=== PATIENT | male | born 1955 | race Caucasian/White ===

== ENCOUNTER → 2020-03-20 08:41 | Outpatient (CLI) | payer MEDICARE, BC, SELFPAY ==
[2016-01-12 10:55] VITALS: BMI 35.3
[2020-03-20 10:40] LABS: Microalbumin,Random Urine 9.9 mg/L (NO RANGE EST.); Microalbumin:Creatinine Ratio 5.7 mg/g CRE (<30 mg/g CRE)
[2020-03-20 10:48] LABS: AST(SGOT) 8 U/L (15-37); Alanine Aminotransfer ALT/SGPT 25 U/L (16-61); Albumin, Serum 3.4 g/dL (3.2-5.0); Alkaline Phosphatase 104 U/L (45-117); Anion Gap 7 (5-15); BUN 20 mg/dL (7-18); BUN/Creat Ratio 19.2 RATIO (10-20); Calcium,Total 8.6 mg/dL (8.5-10.1); Chloride 108 mmol/L (98-107); Cholesterol 219 mg/dL (200); Creatinine, Serum 1.04 mg/dL (0.70-1.30); EST Glomerular Filtration Rate 76 mL/min (>60); Est Glom Filt Rate - Afr Amer 92 mL/min (>60); Globulin 3.4 g/dL (2.2-4.2); Glucose 92 mg/dL (74-106); High Density Lipoprotein 53 mg/dL; PSA,Total - Annual Screen 2.75 ng/mL (0.00-4.00); Potassium 4.2 mmol/L (3.5-5.1); Protein, Total 6.8 g/dL (6.4-8.2); Sodium Level 139 mmol/L (136-145); Thyroid Stim Hormone (TSH) 1.98 uIU/mL (0.358-3.74); Triglycerides 107 mg/dL; Very Low Density Lipoprotein 21 mg/dL (5-40)
[2020-03-20 11:34] LABS: Vitamin D,25 Hydroxy 21.8 ng/mL
== END ==
PROVIDERS: PCP Family Medicine; Referring Provider Family Medicine; Visit Provider Family Medicine
DX: I10 Essential (primary) hypertension (principal); E55.9 Vitamin D deficiency, unspecified; Z12.5 Encounter for screening for malignant neoplasm of prostate
CPT/HCPCS: 36415; 80053; 80061; 82043; 82306; 82570; 84153; 84443; G0103

== ENCOUNTER → 2020-04-06 10:44 | Outpatient (CLI) | payer MEDICARE, BC, SELFPAY ==
[2020-03-28 13:31] VITALS: BMI 34.9
--- NOTE | 2020-04-06 10:46 | ECHOCS_ITS ---
Reason For Study: Abnormal EKG Procedure This was a 2D Doppler, Color Flow transthoracic echocardiogram. The study was technically difficult. Contrast injection was performed. Exam performed in department. Left Ventricle Normal LV size. Moderate concentric left ventricular hypertrophy. The estimated ejection fraction is 50 %. Stage 1 diastolic dysfunction. No regional wall motion abnormalities noted. Right Ventricle Normal RV size. Normal systolic function. Atria Normal left atrium. Normal right atrium. Patent foramen ovale. Mitral Valve Normal mitral valve. Tricuspid Valve Normal tricuspid valve. Aortic Valve The aortic valve is not well visualized. Trisinus/trileaflet aortic valve. Pulmonic Valve The pulmonic valve is not well visualized. Great Vessels Normal aortic root. The pulmonary artery is normal size. Normal inferior vena cava. Pericardium/Pleural No pericardial effusion. Medication 22 gauge I.V. with prn adaptor inserted into right arm. Diluted definity 5ml given slow IV push to enhance endocardial definition. Performed a rapid injection of agitated mix of 9 cc saline and 1cc air to assess for atrial septal defect. MMode/2D Measurements & Calculations LVIDd: 4.8 cm IVSd: 1.6 cm LA dimension: 3.5 cm LVIDs: 3.8 cm LVPWd: 1.9 cm RVDd: 4.1 cm FS: 19.2 % LAV(MOD-bp): 50.7 ml LVAd ap4: 43.4 cm2 SV(MOD-sp4): 93.7 ml LAV(MOD-bp) Indexed: 20.2 ml/m2 EDV(MOD-sp4): 176.6 ml LAV(MOD-sp2): 67.9 ml EDV(sp4-el): 185.6 ml LAV(MOD-sp4): 33.1 ml LVAs ap4: 27.9 cm2 ESV(MOD-sp4): 82.9 ml ESV(sp4-el): 86.5 ml EF(MOD-sp4): 53.0 % EF(sp4-el): 53.4 % SV(sp4-el): 99.1 ml LA A4 area: 14.7 cm2 RA A4 area: 15.0 cm2 Time Measurements MV dec time: 0.26 sec Doppler Measurements & Calculations MV E max roscoe: 46.8 cm/sec Lat Peak E' Roscoe: 7.0 cm/sec Med Peak E' Roscoe: 4.1 cm/sec MV A max roscoe: 82.1 cm/sec E/E' lat: 6.7 E/E' med: 11.3 MV E/A: 0.57 MV V2 max: 82.2 cm/sec MV P1/2t max roscoe: 49.2 cm/sec Ao V2 max: 95.9 cm/sec MV max P.7 mmHg MV P1/2t: 85.5 msec Ao max P.7 mmHg MV V2 mean: 42.3 cm/sec MV mean P.87 mmHg MV dec slope: 168.4 cm/sec2 MV V2 VTI: 19.5 cm MVA(P1/2t): 2.6 cm2 LV V1 max: 77.4 cm/sec PA V2 max: 65.5 cm/sec LV V1 max P.4 mmHg Interpretation Summary Normal LV size. The estimated ejection fraction is 50 %. Moderate concentric left ventricular hypertrophy. Stage 1 diastolic dysfunction. Patent foramen ovale. Contrast injection was performed. Ordering Physician: Dru Minor Referring Physician: Scotty Hendrix Performed By: Gnearo Kidd RCS
== END ==
PROVIDERS: PCP Family Medicine; Referring Provider Internal Medicine Cardiovascular Disease; Visit Provider Internal Medicine Cardiovascular Disease
DX: R94.31 Abnormal electrocardiogram [ECG] [EKG] (principal)
CPT/HCPCS: 93306; Q9957; A4216; C8929

== ENCOUNTER 2020-05-10 10:30 | Outpatient (RCR) | payer MEDICARE, BC, SELFPAY ==
--- NOTE | 2020-03-19 08:50 | HP.PTEVAL_ITS ---
Patient's Visit Information ARIAS CHOE is a 65 year old M referred to Physical Therapy by Dr. Scotty Hendrix MD with a diagnosis of R hip stiffness. Date of Evaluation: 03/19/20 Physical Therapist: Scotty Tyson, DPT, OCS, CSCS - Visit Plan Frequency: 2x /Week Duration: 2 Months Plan: 2x/week for up to 6-8 weeks. Start Aquatic therapy for. 1. HS , qud and hip flexor stretches(h/o R MARISELA yrs ago posterior approach that needs stretched out.). 2. LB flexion ROM. 3. Strength in end ranges (deeper squats and lift positions) , core strength). Progress HEP and [facility] so can progress exercises there. - Subjective Dr. Hendrix sent as mobility is not as good as it used to be. Getting out of chair require arms and doctor does not like that. Hard to bend over and reach floor(plays golf and hard to mckenna up ball.). Has h/o some back issues and has had therapy for that which helped. Back is very stiff. R MARISELA 4 years ago. No real pain. Sleep is not great but not due to hip. Everything feels stiff. Retired one year ago. Rides bike daily stationary or road daily. Feels good afterwards. Basic ADLs are done just slow. Golf throughout winter as able. Has not teed own ball in 5 years or so. No falls. - Objective Walks with mild B foot slap appearing to be more stiffness then strength related. I gait. Needs UE to exit chair(tightness and weakness at extreme ranges). Steps reciprocal with one rail easily. I with bad transfers but core looks weak and labored trying to roll. HS and quads max tight at 50 90/90 test adn heel 6 inches from buttock B in prone. Hip flexor mild tight B. Strength Hips 3 abd and ext R and 3+ L. flexion 4- B, knee flexion and extension 4+ B, ankles 4 B with some inv/ev motor control deficits. Good coordination to reciprocal toe tapping. Sensation WNL to gross light touch in LE. reflexes 1/3 patella and achilles. L/S AROM ext mod limited, SB min limited, flexion max limited adn slow, no pain but very stiff and careful. Unable to put finger on ground in standing or sitting. - Balance Scores Functional Gait Assessment Score: 28 % Disability: 6.6700 - Goals Goal 1:: Bend to put mckenna in ground I Goal Time Frame: 6-8 Weeks Goal 2:: Exit chair without UE I Goal Time Frame: 6-8 Weeks Goal 3:: I appropriate HEP to help with strength and limit stiffness Goal Time Frame: 4-6 Weeks Goal 4:: Pt feel 50% looser and more mobile Goal Time Frame: 4-6 Weeks - Rehabilitation Potential Physical Therapy Diagnosis: stiffness and weakness causing mobility deficits. Rehabilitation Potential: Good - Anticipated Interventions Patient/Client Instruction: Educate patient on: Condition For the Purpose of:: To increase ROM, To improve muscle performance and motor function Therapeutic Exercise to Include: Strength training, Flexibilty training, In an aquatic setting, Passive ROM, Active ROM For the Purpose of:: To increase ROM, To improve muscle performance and motor function, To increase tolerance to activity/condition/position Manual Therapy Techniques to Include: Mobilization For the Purpose of:: To increase ROM Thank you for the opportunity to evaluate your patient. For Medicare and Medicare HMO plans, please review the plan of care and approve it. It will need to be FAXED BACK to us at [phone] for Medicare purposes. For Medicare only, by signing this I certify the plan of care. Please let me know if there are questions or concerns regarding this plan of care. Physician Sig nature: Date:
--- NOTE | 2020-04-12 16:18 | HP.PTREVAL ---
Dr. Scotty Hendrix MD, It has been my pleasure to treat ARIAS CHOE over the last 9 visits for R hip stiffness. Please see the progress note below for an update on the physical therapy plan of care! Subjective: Pretty good. Going the right way. Can bend over better adn touch ground. Can get out of some chairs without using UE. Feels looser adn stronger in core. No pain. No f/u with doctor Objective/Function: Steps reciprocally with one rail, some weakness in LE noted. recovering from bending or extreme knee flexion past 70 or lifting legs into knee flexion higher than 30 degrees is tough for patient. Walks with slightly neuropathic gait pattern but safe on firm flat surface. Out of chair without UE , two attempts needed. Lower chair would have been tough. Unable to bend and touch ground safely as he neded steadied, did touch floor however, needs more ROM in HS and gasroc and back muscles to be safe. Overall improving and yara lbe a usp project for patient. He is willing to joint a community pool and learn more aggressive exercises is appropriate. Fair prognosis over next 4 weeks to meet goals. Plan Plan: 2x/week for two weeks in pool to teach more aggressive HS, gastroc and LB flexion , rotation ROM for golf. Then patient to joint community pool to continue and progress to 2x/week for 2 weeks for land therapy to learn land exercises for functional strength adn ROM LB and legs to eventually done I at community [facility] just reopened. Goals Goal 1:: Bend to put mckenna in ground I Goal Time Frame: 6-8 Weeks Goal Progress: not yet. Goal 2:: Exit chair without UE I Goal Time Frame: 6-8 Weeks Goal Progress: Goal Met Goal 3:: I appropriate HEP to help with strength and limit stiffness Goal Time Frame: 4-6 Weeks Goal Progress: mat and chair., step up Goal 4:: Pt feel 50% looser and more mobile Goal Time Frame: 4-6 Weeks Goal Progress: Progressing Goal 5:: I pool adn gym ex to improve mobility adn strength. Goal Time Frame: 2-4 Weeks Goal Progress: NEW GOAL Anticipated Interventions Patient/Client Instruction: Educate patient on: Condition For the Purpose of:: To increase ROM, To improve muscle performance and motor function Therapeutic Exercise to Include: Strength training, Flexibilty training, In an aquatic setting, Passive ROM, Active ROM For the Purpose of:: To increase ROM, To improve muscle performance and motor function, To increase tolerance to activity/condition/position Manual Therapy Techniques to Include: Mobilization For the Purpose of:: To increase ROM Please do not hesitate to contact me at [phone] by phone or if you have questions or concerns regarding this new plan of care! Sincerely, Scotty Tyson, DPT, OCS, CSCS
--- NOTE | 2020-05-10 11:16 | HP.PTDCSUM ---
It has been my pleasure to treat ARIAS CHOE referred by Dr. Scotty Hendrix MD, with the diagnosis of R hip stiffness for a total of 17 visit(s). Discharge Date: 05/10/20 Please see the following information for a summary of their discharge status. Subjective: Still going the right way. Mades ome progress. Can get the floor now and pick things up. Has been golfing but someone still tees him up, he feels like he can try to mckenna up himself next week. To doctor in August. Is a member at the [facility] and does go there everyday. Riding bike at home and stretching at [facility] and lifting some weights % Improvement: 35 Objective/Function: ROM WFL in back and weight shift forward is limiting factor in sit to stand, back stiffness into flexion does not help this. Steps are reciprocal with just slight rail for safety. walks well. Pt feels comfortable cotninuing via his HEP with stretches, strengthening and bike at [facility] vs continue therapy. Goal 1:: Bend to put mckenna in ground I Goal Progress: with support only! Goal 2:: Exit chair without UE I Goal Progress: Goal Met, inconsistent. Goal 3:: I appropriate HEP to help with strength and limit stiffness Goal Progress: Goal Met Goal 4:: Pt feel 50% looser and more mobile Goal Progress: 35% Goal 5:: I pool adn gym ex to improve mobility adn strength. Goal Progress: Goal Met Plan: d/c to P Discharge Comments: Pt planning on continuing at [facility] but not in pool anymore. Will focus on stretching at home especially functional and contact doctor if progress stagnates. Will f/u with doctor in August. If there are questions or concerns regarding this patient's physical therapy, please feel free to call me at [phone]. Thank you for the referral of this patient. Sincerely, Scotty Tyson, DPT, OCS, CSCS
== END 2020-05-10 19:00 | disposition home or self-care (01) ==
LOC: PT 10:30
PROVIDERS: PCP Family Medicine; Referring Provider Family Medicine; Visit Provider Family Medicine
DX: M25.651 Stiffness of right hip, not elsewhere classified (principal); R26.89 Other abnormalities of gait and mobility
CPT/HCPCS: 97110; 97113; 97162; 97164

== ENCOUNTER 2021-03-19 08:08 | Outpatient (CLI) | payer MEDICARE, BC, SELFPAY | END 2021-03-19 23:59 | disposition short-term general hospital (02) | LOC: MFPLAB 08:09 | PROVIDERS: PCP Family Medicine; Referring Provider Family Medicine; Visit Provider Nurse Practitioner Family | DX: R69 Illness, unspecified (principal) ==

== ENCOUNTER → 2021-08-16 | Outpatient (CLI) | payer MEDICARE, BC, SELFPAY ==
[2021-08-16 10:27] LABS: Anion Gap 6 (5-15); BUN 18 mg/dL (7-18); BUN/Creat Ratio 18.9 RATIO (10-20); Calcium,Total 8.9 mg/dL (8.5-10.1); Chloride 108 mmol/L (98-107); Cholesterol 212 mg/dL (200); Creatinine, Serum 0.95 mg/dL (0.70-1.30); EST Glomerular Filtration Rate 84 mL/min (>60); Est Glom Filt Rate - Afr Amer 102 mL/min (>60); Glucose 97 mg/dL (74-106); High Density Lipoprotein 59 mg/dL; PSA,Total - Annual Screen 3.72 ng/mL (0.00-4.00); Potassium 4.1 mmol/L (3.5-5.1); Sodium Level 138 mmol/L (136-145); Triglycerides 109 mg/dL; Very Low Density Lipoprotein 22 mg/dL (5-40)
== END | disposition home or self-care (01) ==
PROVIDERS: PCP Family Medicine; Referring Provider Family Medicine; Visit Provider Nurse Practitioner Family
DX: Z12.5 Encounter for screening for malignant neoplasm of prostate (principal); I10 Essential (primary) hypertension
CPT/HCPCS: 36415; 80048; 80061; 84153; G0103

== ENCOUNTER → 2022-02-18 | Outpatient (CLI) | payer MEDICARE, BC, SELFPAY ==
--- NOTE | 2022-02-18 16:05 | EKG12_ITS ---
Test Reason : PREOP Blood Pressure : / mmHG Vent. Rate : 070 BPM Atrial Rate : 070 BPM P-R Int : 222 ms QRS Dur : 108 ms QT Int : 402 ms P-R-T Axes : 040 -64 034 degrees QTc Int : 434 ms Sinus rhythm with 1st degree A-V block Left anterior fascicular block Abnormal ECG Confirmed by DEVIN SCALES, JAMI ([id number]), deputy editor in chief NISREEN CORTES ([id number]) on 02/19/2022 8:59:12 AM Referred By: SHAHBAZ Confirmed By:JAMI BELTRAN MD
[2022-02-18 16:53] LABS: Hematocrit 49.6 % (40-54); Mean Corp Hgb Conc 32.3 g/dL (32-36); Mean Corpuscular Hgb 27.5 pg (27.0-32.0); Mean Corpuscular Volume 85.4 fL (80-94); Mean Platelet Vol. 10.2 fl (6.2-12.0); Platelet Count 253 K/mm3 (150-450); RBC Distribution Width CV 14.1 % (11.6-14.6); RBC Distribution Width SD 43.9 fl (35.1-43.9); Red Blood Count 5.81 M/mm3 (4.6-6.2); White Blood Count 8.5 K/mm3 (4.4-11.0)
[2022-02-18 17:08] LABS: Anion Gap 3 (5-15); BUN 22 mg/dL (7-18); BUN/Creat Ratio 24.4 RATIO (10-20); Calcium,Total 8.9 mg/dL (8.5-10.1); Chloride 106 mmol/L (98-107); EST Glomerular Filtration Rate 89 mL/min (>60); Est Glom Filt Rate - Afr Amer 108 mL/min (>60); Glucose 113 mg/dL (74-106); Potassium 4.3 mmol/L (3.5-5.1); Sodium Level 140 mmol/L (136-145)
== END | disposition home or self-care (01) ==
LOC: PSN 16:00
PROVIDERS: PCP Family Medicine; Visit Provider Physician Assistant
DX: Z01.818 Encounter for other preprocedural examination (principal); Z01.810 Encounter for preprocedural cardiovascular examination
CPT/HCPCS: 36415; 80048; 85027; 93005

== ENCOUNTER 2022-11-06 09:00 | Outpatient (RCR) | payer MEDICARE, BC, SELFPAY ==
--- NOTE | 2022-10-16 16:57 | HP.PTEVAL_ITS ---
Patient's Visit Information Visit Information Visit Information: ARIAS CHOE is a 67 year old M referred to Physical Therapy by Dr. Adam Hayden, DO with a diagnosis of SPINAL STENOSIS,LUMBAR W/O NEUROGENIC, SPONDYLOSIS WITH RADICULOPATHY,DDD. Date of Evaluation: 10/16/22 Physical Therapist: Greg Flores, PT, Cert MDT, OCS Visit Plan Frequency: 2x /Week Duration: 4 Weeks Plan: PT INTERVETIONS DLS ,POSTURAL EX'S ,LE FLEXABLITY ,AND BLE STRENGTHENING ESPECIALLY HIPS Subjective Subjective: This 67 y/o male presents to physical therapy with lumbar radiculopathy with spinal stenosis. Patient has had back symptoms along with sciatica issues many years . Patient has had PT in past which helped . Location of pain symmetrical lumbar and right leg > left .Most recently developed increase symptoms in legs. Seen DR Hayden and recommended PT. Prescribed prednisone which helped . Patient had MRI and x-rays showed spinal stenosis progressive DDD ~ 4weeks. Also plan to see DR Sampson for pain management. Aggravating walking , bending/lifting. Alleviating rest and sit along with medication. Coughing/sneezing-. Bowel/bladder -. Denies paresthesia/tingling-. Patient does c/o weakness in legs. Patient symptoms affects QOL and function. Patient goals to get stronger and less pain. PMH: right THR and arthroscopic left SOCIAL: HOBBIES: golfing VOCATION: retired Pain Bilateral Back: Pain Intensity (Out of 10): 1 Pain Intensity Range: 10 Bilateral Lower Extremity: Pain Intensity (Out of 10): 1 Pain Intensity Range: 10 Objective Objective: POSTURE: mild forward posture hip/knees flexed PALAPTION: unremarkable NEURO: denies paresthesia/tingling ,reflexes L3-4,L4-5 ,L4-5 1/3 SYMMTRIES: align GAIT: ambulates with shuffle gait with decrease hip flexion foot flat mild forward posture MMT: quads/hams 4-/5 ,( peak force ) hip flexion R 17,8 ,L 18,8 ,hip abd R 12.8 ,L 13.6 ,DF 4/5 LUMBAR ROM: flexion mod loss ,extension mod loss ,side glides mod loss , FLEXABILITY: hamstrings mod /severe loss ~ 45 degrees Special Tests L/S Slump test left side: Negative L/S Slump test right side: Negative L/S Left Straight Leg Raise: Negative L/S Right Straight Leg Raise: Negative Lumbar Standing: Flexion - Mechanical Response: No effect Lumbar Standing: Flexion - Symptoms During Testing: No effect Lumbar Standing: Flexion - Symptoms After Testing: No effect Lumbar Standing: Extension - Mechanical Response: No effect Lumbar Standing: Extension - Symptoms During Testing: No effect Lumbar Standing: Extension - Symptoms After Testing: No effect Lumbar Standing: Right Side Glides - Mechanical Response: No effect Lumbar Standing: Right Side [place] - Symptoms During Testing: No effect Lumbar Standing: Right Side [place] - Symptoms After Testing: No effect Lumbar Standing: Left Side [place] - Mechanical Response: No effect Lumbar Standing: Left Side [place] - Symptoms During Testing: No effect Lumbar Standing: Left Side [place] - Symptoms After Testing: No effect Balance/Special Test Scores Oswestry Low Back Score: 22 Goals Goal 1:: I with HEP for Lumbar Goal Time Frame: 4-6 Weeks Goal 2:: Patient improve lumbar ROM for function of recovery to put on shoes Goal Time Frame: 4-6 Weeks Goal 3:: Patient to demonstrate 50% improvement with decrease pain and improve function Goal Time Frame: 4-6 Weeks Goal 4:: Patient to improve back oswestry score by 5 points or > to improve QOL Goal Time Frame: 4-6 Weeks Goal 5:: Patient to improve peak force of hips by 5-10 # strength to improve gait Goal Time Frame: 4-6 Weeks Rehabilitation Potential Physical Therapy Diagnosis: This patient has lumbar stenosis with weakness in legs especially hip impair gait with pain increases with positioning and and lifting thus benefit from skilled PT Rehabilitation Potential: Good Anticipated Interventions Patient/Client Instruction: Educate patient on: Condition and Plan of Care For the Purpose of:: To decrease pain, To increase ROM, To improve muscle performance and motor function, To improve ability to perform ADL's, To increase tolerance to activity/condition/position, To improve ability of physical actions for home/community/work/leisure, To improve gait and locomotor functions, To improve health of tissue, To decrease soft tissue restriction, To increase flexibility/ROM and To improve endurance Therapeutic Exercise to Include: Strength training, Balance training, Body mechanics, Postural training, Flexibilty training and Dynamic Lumbar Stabilization For the Purpose of:: To decrease pain, To increase ROM, To improve muscle performance and motor function, To improve ability to perform ADL's, To increase tolerance to activity/condition/position, To improve ability of physical actions for home/community/work/leisure, To improve health of tissue, To decrease soft tissue restriction, To increase flexibility/ROM, To improve endurance and To improve tolerance to ADL's Text: Thank you for the opportunity to evaluate your patient. For Medicare and Medicare HMO plans, please review the plan of care and approve it. It will need to be FAXED BACK to us at [phone] for Medicare purposes. For Medicare only, by signing this I certify the plan of care. Please let me know if there are questions or concerns regarding this plan of care. Physician Signature: Date:
== END 2022-11-06 19:00 | disposition home or self-care (01) ==
LOC: PT 09:00
PROVIDERS: PCP Family Medicine; Referring Provider Orthopaedic Surgery; Visit Provider Orthopaedic Surgery
DX: M48.061 Spinal stenosis, lumbar region without neurogenic claudication (principal); M47.26 Other spondylosis with radiculopathy, lumbar region; M51.36 Other intervertebral disc degeneration, lumbar region
CPT/HCPCS: 97110; 97162

== ENCOUNTER 2022-12-25 10:50 | Outpatient (CLI) | payer MEDICARE, BC, SELFPAY ==
[2022-12-25 12:18] LABS: Absolute Lymphocyte Count 2.45 X10^3/uL (0.83-4.51); Absolute Neutrophil Count 4.2 X10^3/uL (2.0-7.7); Basophil# 0.08 X10^3/uL; Basophil% 1.1 % (0-1); Eosinophil# 0.22 X10^3/uL; Eosinophils% 2.9 % (0-5); Hematocrit 47.8 % (40-54); Lymphocyte # 2.45 X10^3/ul (0.83-4.51); Lymphocyte % 32.2 % (19-41); Mean Corp Hgb Conc 31.4 g/dL (32-36); Mean Corpuscular Hgb 26.9 pg (27.0-32.0); Mean Corpuscular Volume 85.8 fL (80-94); Mean Platelet Vol. 10.5 fl (6.2-12.0); Monocyte# 0.64 X10^3/uL; Monocyte% 8.4 % (0-10); NRBC Flagged by Analyzer 0 % (0-5); Neutrophil # 4.19 X10^3/uL (2.7-7.7); Platelet Count 227 K/mm3 (150-450); RBC Distribution Width SD 43.8 fl (35.1-43.9); Red Blood Count 5.57 M/mm3 (4.6-6.2); White Blood Count 7.6 K/mm3 (4.4-11.0)
[2022-12-25 13:11] LABS: ALB/GLOB Ratio 0.8 RATIO (0.9-2.4); AST(SGOT) 10 U/L (15-37); Alanine Aminotransfer ALT/SGPT 24 U/L (16-61); Albumin, Serum 3.1 g/dL (3.2-5.0); Alkaline Phosphatase 108 U/L (45-117); Anion Gap 7 (5-15); BUN 12 mg/dL (7-18); Calcium,Total 8.8 mg/dL (8.5-10.1); Chloride 109 mmol/L (98-107); Cholesterol 188 mg/dL (200); Creatinine, Serum 0.86 mg/dL (0.70-1.30); EST Glomerular Filtration Rate 94 mL/min (>60); Est Glom Filt Rate - Afr Amer 114 mL/min (>60); Globulin 3.8 g/dL (2.2-4.2); Glucose 101 mg/dL (74-106); High Density Lipoprotein 52 mg/dL; PSA,Total - Annual Screen 4.89 ng/mL (0.00-4.00); Potassium 4.7 mmol/L (3.5-5.1); Protein, Total 6.9 g/dL (6.4-8.2); Sodium Level 140 mmol/L (136-145); Thyroid Stim Hormone (TSH) 2.03 uIU/mL (0.358-3.74); Triglycerides 112 mg/dL; Very Low Density Lipoprotein 22 mg/dL (5-40)
[2022-12-25 16:35] LABS: Microalbumin,Random Urine < 5.0 mg/L (NO RANGE EST.)
[2022-12-25 19:04] LABS: Hemoglobin A1c 5.5 % (3.8-5.6)
== END 2022-12-25 23:59 | disposition home or self-care (01) ==
LOC: MFPLAB 10:50
PROVIDERS: PCP Family Medicine; Visit Provider Family Medicine
DX: Z00.00 Encounter for general adult medical examination without abnormal findings (principal); E66.01 Morbid (severe) obesity due to excess calories; Z12.5 Encounter for screening for malignant neoplasm of prostate; I10 Essential (primary) hypertension; M13.0 Polyarthritis, unspecified; G56.00 Carpal tunnel syndrome, unspecified upper limb
CPT/HCPCS: 36415; 80053; 80061; 82043; 82570; 83036; 84153; 84443; 85025; G0103

== ENCOUNTER → 2023-06-17 | Outpatient (CLI) | payer MEDICARE, BC, SELFPAY ==
[2023-06-17 10:28] LABS: ALB/GLOB Ratio 1.1 RATIO (0.9-2.4); AST(SGOT) 15 U/L (15-37); Alanine Aminotransfer ALT/SGPT 21 U/L (16-61); Albumin, Serum 3.4 g/dL (3.2-5.0); Alkaline Phosphatase 102 U/L (45-117); Anion Gap 4 (5-15); BUN 18 mg/dL (7-18); BUN/Creat Ratio 19.4 RATIO (10-20); Calcium,Total 8.8 mg/dL (8.5-10.1); Chloride 110 mmol/L (98-107); Creatinine, Serum 0.93 mg/dL (0.70-1.30); EST Glomerular Filtration Rate 86 mL/min (>60); Est Glom Filt Rate - Afr Amer 104 mL/min (>60); Globulin 3.2 g/dL (2.2-4.2); Glucose 92 mg/dL (74-106); PSA,Total - Annual Screen 4.64 ng/mL (0.00-4.00); Protein, Total 6.6 g/dL (6.4-8.2); Sodium Level 139 mmol/L (136-145)
== END | disposition home or self-care (01) ==
LOC: MFPLAB 08:34
PROVIDERS: PCP Family Medicine; Visit Provider Family Medicine
DX: Z12.5 Encounter for screening for malignant neoplasm of prostate (principal); R97.20 Elevated prostate specific antigen [PSA]
CPT/HCPCS: 36415; 80053; 84153; G0103

== ENCOUNTER 2023-12-11 12:06 | Day surgery (SDC) | payer MEDICARE, BC, SELFPAY ==
[2023-12-11 12:24] VITALS: BP 131/72; PULSE 76; RESP 16; TEMP 36.5; O2SAT 99; BMI 31.5
--- NOTE | 2023-12-11 13:00 | LES_PTH ---
PATIENT: ARIAS CHOE LOC: [facility] [place] U#:[id number] AGE/SX: 68/M ROOM: RE12/11/[address]: Dr. Kamilah Ortega MD : 1955 BED: DIS: 12/11/2023 SPEC #: [id number] RECD: 12/11/23 16:48 STATUS: LAURA LANCE #: [id number] DALE: 12/11/23 13:[address]: Kamilah Ortega DEPT: SURGICAL PATHOLOGY RECD BY: Carly Sawant ENTERED: 12/14/23 07:46 SP TYPE: Lesion OTHR DR: Dr. Scotty Hendrix MD Tissues: A - Skin of chest B - Skin of chest Procedures: Surgery Specimen Level IV HEADER OPERATION: Excision lesion chest x 2 (1.5, 1.5cm) with intermediate closure PRE-OP DIAGNOSIS: Neoplasm of uncertain behavior of skin of chest TISSUE SUBMITTED: A- Neoplasm of uncertain behavior of skin of chest #1 lateral, B- Neoplasm of uncertain behavior of skin of chest #2 medial MICROSCOPIC DIAGNOSIS A. Skin lesion of chest #1, lateral, excisional biopsy: Basal cell carcinoma, nodular type with focal ulceration and marked dermal inflammation, completely excised in the planes of sections examined. Actinic keratosis. B. 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 Actinic keratosis. 12/15/2023 COMMENT Case has been reviewed in consultation with Dr. Garcia who concurs with the above diagnosis. IDC:AM MICROSCOPIC DESCRIPTION Slides are reviewed. GROSS DESCRIPTION A. Received in fixative is one container labeled with the patient's name and designated Neoplasm of uncertain behavior of skin of chest #1 lateral. The specimen consists of a ambrocio-white skin piece measuring 1.1 x 0.9 x 0.3cm. The specimen is inked, serially sectioned and submitted entirely in one cassette. B. Received in fixative is one container labeled with the patient's name and designated Neoplasm of uncertain behavior of skin of chest #2 medial. The specimen consists of a piece of ambrocio-light brown skin measuring 1.0 x 0.6 x 0.3cm. The specimen is inked, serially sectioned and submitted entirely in one cassette. 12/14/2023 TC:0 CPT:40909s2
--- NOTE | 2023-12-11 13:05 | PCM.HP.BLA ---
History and Physical Date of Admission: 12/11/23 The patient is examined and there are no changes from the H&P dated 12/08/2023. He presents for excision of 2 lesions of his chest. These specimens will be sent to pathology for evaluation. Informed consent was obtained. Assessment & Plan Assessment/Plan (1) Neoplasm of uncertain behavior of skin of chest: PLAN: Plan For excision neoplasms chest for pathologic evaluation.
[2023-12-11] MEDS: Lidocaine 1% /Epi 1:100 9 ML, Sodium Bicarbonate 1 MEQ OPERA.SITE (13:54)
[2023-12-11 13:58] VITALS: BP 113/73; BP 118/69; O2SAT 100; O2SAT 97; O2SAT 98; O2SAT 99
--- NOTE | 2023-12-11 14:21 | DCINST_ITS ---
Discharge Instructions Dressing / Incision Additional Dressing/Incision Instructions:: May shower over the dressings on your chest. May leave the dressings on until seen in the office. If the dressings fall off, you can apply antibiotic ointment and Band-Aids. Take the oral antibiotic (Keflex) 2 times a day until finished. Follow Up Care Please Follow Up With: Kamilah Ortega MD When: In 1 to 2 weeks Test Results: Test results from this visit will be discussed in further detail at your follow- up appointment, if applicable. Discharge Plan Admission Attending Provider: Kamilah Ortega Primary Care Provider: Scotty Hendrix Instructions Print Language: Persian Discharge Orders/Prescriptions Prescriptions: New cephalexin 500 mg capsule 500 mg PO BID 5 Days Qty: 10 0RF No Action Garcinia Cambogia 200-500 mcg-mg tablet 3 tab PO BID Rx Instructions: administer with meals naproxen sodium [Aleve] 220 mg tablet 220 mg PO BID PRN (Reason: pain) Aleve PM 220-25 mg tablet 1 tab PO HS PRN multivitamin Tablet 1 tab PO DAILY diclofenac sodium [Voltaren] 1 % gel 2 g TOPICAL DAILY PRN Rx Instructions: apply to single elbow, wrist or hand; for hand includes palm/fingers/back of hand gabapentin 300 mg capsule 300 mg PO BID semaglutide 0.25 mg or 0.5 mg(2 mg/1.5 mL) pen injector 0.5 mg subcut QWEEK Referrals / Follow Up: Scotty Hendrix MD [Primary Care Provider] - Disposition Disposition (needs filled in before D/C Order can be placed): Home, Self Care
--- NOTE | 2023-12-11 14:26 | OP.PCM_ITS ---
Problems Associated Problem List Diagnoses (1) Neoplasm of uncertain behavior of skin of chest: Report of Operation Date of Procedure: 12/11/23 Pre-Operative Diagnosis: Neoplasm of chest skin x 2 Post-Operative Diagnosis: Same Surgery/Procedure Performed:: Excision neoplasms of anterior chest (1.5 cm, 1.5 cm) and intermediate closure both sites Surgeon: Kamilah Ortega Type of Anesthesia: Local Specimen's removed: Above Estimated Blood Loss (mL): Minimal Description of Procedure: The patient presents today with 2 new skin neoplasms of the anterior chest. He presents for excision of the lesions with submission for pathologic evaluation. He is aware of the potential need for further surgery depending on the resulting pathology. The patient is brought to the operating room and placed on the operating room table in the supine position. The chest is prepped and draped in the usual cristian rile fashion. 1% Xylocaine with epinephrine buffered with sodium bicarb is injected beneath both sites. Following this, there they are elliptically excised and passed off the operative field to be sent to pathology. Hemostasis is controlled with cautery. Following this, the sites are closed in layers using a Monocryl suture to approximate subcutaneous tissue and dermis with [id number] sutures. Following this, skin edges are approximated with a running subcuticular Monocryl suture. Dermabond Steri-Strips and a Tegaderm are applied to both sites. He tolerated the procedure well was taken to the recovery area in an awake and stable condition. Needle and sponge counts are correct. Complications None Admit VTE Documentation VTE Mechan Device Prophylaxis: None Reason prophylaxis not ordered:: Treatment Not Indicated
[2023-12-11 14:33] VITALS: BP 112/74; BP 131/72; PULSE 62; RESP 16; TEMP 36.7; O2SAT 99
[2023-12-11 14:37] VITALS: BP 131/72
== END 2023-12-11 14:46 | disposition home or self-care (01) ==
LOC: SDC 12:08 → AC 12:09
PROVIDERS: PCP Family Medicine; Referring Provider Plastic Surgery; Visit Provider Plastic Surgery
PROC: (CPT 11402; principal; 2023-12-11 12:50)
DX: D18.01 Hemangioma of skin and subcutaneous tissue (principal); L57.0 Actinic keratosis
CPT/HCPCS: 11402 ×2; 12032; 88305

== ENCOUNTER → 2023-12-31 | Outpatient (CLI) | payer MEDICARE, BC, SELFPAY ==
--- OUTSIDE RECORDS SUMMARY | 2023-12-31 11:56 | XMS RPT_ITS | CCD ---
Author Organization [facility] Results Test Name Value Interpretation Reference Range Facil ity PROGRESSon 03-13-2020 PROGRESS HNO ID: [id number] Author: Waleska Hurtado) SONAM Zarate Service: ? Author Type: Clinical Supervising Bailiff Type: Progress Notes Filed: 03/13/2020 9:04 AM Note Text: Radiology Service Progress Note PATIENT NAME: Austen Wagner DATE OF SERVICE: March 13, 2020 TIME: 9:04 AM PATIENT IDENTITY VERIFICATION COMPLETED USING TWO (2) IDENTIFIERS: Name and Date of confirmed by patient verbally. FALL SCREENING: Has the patient had 2 falls in the last year or 1 fall with injury or currently using an Ambulatory Assistive Device (Walker, Cane, Wheelchair, Crutches, etc.)? No PATIENT GENDER DATA: Male PATIENT RELEVANT IMPLANT DATA REVIEWED: Not Applicable RADIOLOGY DEPARTMENT: General X-ray: Exam(s) Completed: Pelvis X-Ray: Pelvis General AP PERIPHERAL IV DATA: Not applicable SIGNED BY: SONAM Mcbride March 13, 2020 9:04 AM [facility] XR PELVIS 1V APon 03-13-2020 XR PELVIS 1V AP * * *Final Report* * * DATE OF EXAM: Mar 13 2020 9:03AM [facility] [id number] - XR PELVIS 1V AP / PROCEDURE REASON: M25.551-Pain in right hip * * * * Physician Interpretation * * * * EXAMINATION: XR PELVIS 1V AP PATIENT/TECHNOLOGIST PROVIDED HISTORY: CHECK UP THR LOW PELVIS CLINICAL INFORMATION: 65 years old Male with Pain in right hip TECHNIQUE: XR PELVIS 1V AP Laterality: NOT APPLICABLE Number of different views (projections): 1 COMPARISON: Radiographs 03/19/2017, 03/18/2016, 01/24/2016, 12/24/2015 RESULT: Status post right total hip arthroplasty unchanged in alignment and position without evidence of loosening or periprosthetic fracture on this single frontal view. Similar amount of heterotopic ossification adjacent to the lesser trochanter. Slight interval increase in heterotopic ossification adjacent to the lateral acetabular rim and lateral femoral neck. Mild degenerative change left hip with inferomedial joint space narrowing and marginal osteophyte formation. IMPRESSION: Intact appearing right total hip arthroplasty. Block Chopper Hand: [place] Transcribe Date/Time: Mar 13 2020 9:06A Dictated by : MIKE RIOS DO This examination was interpreted and the report reviewed and electronically signed by: MIKE RIOS DO on Mar 13 2020 9:16AM EST [id number] N Normal [facility] Summary Purpose Family History No Family History Records Found Advance Directives No Advanced Directives Records Found Additional Source Comments (unrecognized sect ion and content) No Status Records Found INFORMATION SOURCE (unrecogn ized section and content) DATE CREATED AUTHOR 03/13/2020 [facility] FOR RECORDS PERTAINING TO PATIENTS WHO ARE OR HAVE BEEN ENROLLED IN A CHEMICAL DEPENDENCY/SUBSTANCEABUSE PROGRAM, SOME INFORMATION MAY BE OMITTED. This clinical summary was aggregated from multiple sources. Caution should be exercised in using it in the provision of clinical care. This summary normalizes information from multiple sources, and as a consequence, information in this document may materially change the coding, format and clinical context of patient data. In addition, data may be omitted in some cases. CLINICAL DECISIONS SHOULD BE BASED ON THE PRIMARY CLINICAL RECORDS. [facility] provides no warranty or guarantee of the accuracy or completeness of information in this document.
[2023-12-31 12:01] LABS: Absolute Lymphocyte Count 1.72 X10^3/uL (0.83-4.51); Absolute Neutrophil Count 3.8 X10^3/uL (2.0-7.7); Basophil# 0.07 X10^3/uL; Basophil% 1.1 % (0-1); Eosinophil# 0.18 X10^3/uL; Eosinophils% 2.8 % (0-5); Hematocrit 48.5 % (40-54); Lymphocyte # 1.72 X10^3/ul (0.83-4.51); Lymphocyte % 26.8 % (19-41); Mean Corpuscular Hgb 27.3 pg (27.0-32.0); Mean Corpuscular Volume 82.6 fL (80-94); Mean Platelet Vol. 10.6 fl (6.2-12.0); Monocyte% 9.4 % (0-10); NRBC Flagged by Analyzer 0 % (0-5); Neutrophil # 3.82 X10^3/uL (2.7-7.7); Neutrophil % 59.6 % (47-70); Platelet Count 222 K/mm3 (150-450); RBC Distribution Width CV 13.9 % (11.6-14.6); RBC Distribution Width SD 41.9 fl (35.1-43.9); Red Blood Count 5.87 M/mm3 (4.6-6.2); White Blood Count 6.4 K/mm3 (4.4-11.0)
[2023-12-31 12:34] LABS: AST(SGOT) 15 U/L (15-37); Alanine Aminotransfer ALT/SGPT 17 U/L (16-61); Albumin, Serum 3.4 g/dL (3.2-5.0); Alkaline Phosphatase 108 U/L (45-117); Anion Gap 7 (5-15); BUN 17 mg/dL (7-18); BUN/Creat Ratio 19.8 RATIO (10-20); Calcium,Total 8.7 mg/dL (8.5-10.1); Chloride 110 mmol/L (98-107); Cholesterol 208 mg/dL (200); Creatinine, Serum 0.86 mg/dL (0.70-1.30); EST Glomerular Filtration Rate 94 mL/min (>60); Est Glom Filt Rate - Afr Amer 114 mL/min (>60); Globulin 3.3 g/dL (2.2-4.2); Glucose 95 mg/dL (74-106); High Density Lipoprotein 59 mg/dL; PSA,Total- Diagnostic 4.96 ng/mL (0.0-4.0); Potassium 4.2 mmol/L (3.5-5.1); Protein, Total 6.7 g/dL (6.4-8.2); Sodium Level 138 mmol/L (136-145); Triglycerides 86 mg/dL; Very Low Density Lipoprotein 17 mg/dL (5-40)
[2023-12-31 13:58] LABS: Microalbumin,Random Urine 55.8 mg/L (NO RANGE EST.); Microalbumin:Creatinine Ratio 13.9 mg/g CRE (<30 mg/g CRE)
== END | disposition home or self-care (01) ==
LOC: MFPLAB 10:23
PROVIDERS: PCP Family Medicine; Visit Provider Family Medicine
DX: M13.0 Polyarthritis, unspecified (principal); R97.20 Elevated prostate specific antigen [PSA]; E66.9 Obesity, unspecified; I10 Essential (primary) hypertension
CPT/HCPCS: 36415; 80053; 80061; 82043; 82570; 84153; 84443; 85025

== ENCOUNTER 2024-03-03 17:30 | Outpatient (RCR) | payer MEDICARE, BC, SELFPAY | END 2024-03-03 19:00 | disposition home or self-care (01) | LOC: PT 17:30 | PROVIDERS: PCP Family Medicine; Referring Provider Anesthesiology Pain Medicine; Visit Provider Anesthesiology Pain Medicine | DX: M48.062 Spinal stenosis, lumbar region with neurogenic claudication (principal); M54.17 Radiculopathy, lumbosacral region | CPT/HCPCS: 97110; 97161; 97530 ==

== ENCOUNTER → 2024-05-13 | Outpatient (CLI) | payer MEDICARE, BC, SELFPAY ==
--- NOTE | 2024-05-13 08:09 | MRI_ITS ---
PROCEDURE: PELVIS W/WO CONTRAST REASON FOR EXAM: ELEVATED PSA 4.96 TECHNIQUE: Multisequence multiplanar MRI pelvis was performed with and without IV contrast. CONTRAST: 15 mL Clariscan COMPARISON: None FINDINGS: Note dynamic postcontrast imaging was not performed; an alternative PI-RADS algorithm was therefore utilized. Exam additionally limited by artifact related to right hip arthroplasty, the portions of the right pelvis partially obscured on some sequences. Variable overall mild motion limitation. Prostate size: 5.4 x 4.1 x 3.9 cm, estimated volume 45 mL (PSA density 0.11 based on provided PSA 4.96). Transition zone: PI-RADS 2 findings. Additional lesions as below: *Lesion 1: Left anterior transition zone apex probably involving the overlying left anterior peripheral zone apex, 2.2 cm (series 9, image 19). *T2 score: 5. *DWI score: 3. *DCE: N/a. *Overall PI-RADS: Borderline; felt the best considered PI-RADS 4. *Extracapsular extension: No gross extracapsular extension, however note that there is capsular abutment greater than 1 cm which can be associated with microscopic extracapsular extension. Peripheral Zone: As above, otherwise no clear high-risk lesion identified. Background changes of likely prostatitis. Probable partially extruded transition zone nodule in the left posterior peripheral zone midgland to apex. Neurovascular bundles: Unremarkable. Seminal vesicles: Unremarkable. Bladder: Underdistended and suboptimally evaluated. Mild wall thickening and trabeculation suggesting chronic bladder outlet obstruction. Lymph nodes: Distal external iliac nodes up to 9 mm short axis on the left and 7 mm short axis on the right. Bones: Artifact related to right hip arthroplasty as above. No frankly destructive or suspicious bony lesion identified allowing for limitations. Other: Trace nonspecific pelvic free fluid. Small fat containing bilateral inguinal hernias. Trace left hip joint effusion. Suspect trace hydroceles, partially imaged. MRI/Pelvis W/WO Contrast IMPRESSION: 1. 2.2 cm lesion in the left anterior transition zone apex probably involving t he overlying left anterior peripheral zone is borderline but felt the best considered PI-RADS 4. 2. No gross extracapsular extension, however note that there is capsular abutme nt greater than 1 cm which can be associated with microscopic extracapsular extension. 3. Mild distal left external iliac lymphadenopathy by PI-RADS criteria, nonspec ific in the absence of known prostatic malignancy and potentially reactive. If prostatic neoplasm is found to be present, this w ould at a minimum warrant close follow-up. Prominent but technically nonenlarged distal right external iliac node also pre sent. 4. Trace nonspecific pelvic free fluid. 5. Additional description as above. Reading Location: [id number]
== END | disposition home or self-care (01) ==
LOC: MRI 07:48
PROVIDERS: PCP Family Medicine; Referring Provider Urology; Visit Provider Urology
DX: R97.20 Elevated prostate specific antigen [PSA] (principal)
CPT/HCPCS: 72197; A9575

== ENCOUNTER 2024-06-09 15:43 | Outpatient (CLI) | payer MEDICARE, BC, SELFPAY ==
--- NOTE | 2024-06-09 08:00 | PROSB_PTH ---
PATIENT: ARIAS CHOE LOC: [facility] U#:[id number] AGE/SX: 69/M ROOM: RE06/09/[address]: Dr. Shiv Ray MD : 1955 BED: DIS: 06/09/2024 SPEC #: [id number] RECD: 06/10/24 11:10 STATUS: LAURA RECass #: [id number] DALE: 06/09/24 08:[address]: Shiv Ray DEPT: SURGICAL PATHOLOGY RECD BY: Jay Romeo ENTERED: 06/10/24 11:10 SP TYPE: PROST BX OTHR DR: Dr. Scotty Hendrix MD Tissues: A - Prostate, NOS Procedures: Surgery Specimen Level IV HEADER OPERATION: Prostate biopsy PRE-OP DIAGNOSIS: Elevated PSA TISSUE SUBMITTED: A- Prostate biopsy MICROSCOPIC DIAGNOSIS A. Prostate, left mid, core biopsy: - Adenocarcinoma Nu 3+3=6, 4/4 cores, involving 50% of the tissue. MICROSCOPIC DESCRIPTION Slides are reviewed. GROSS DESCRIPTION A. Received in formalin in a container labeled with the patient's name, date of , and left mid are 4 white-ellis, wispy core biopsies of soft tissue ranging from 1.0 x 0.1 cm to 1.6 x 0.1 cm. Submitted in toto in A1-2 (2 cores per cassette). [facility] 06-10-2024 CPT: G0146
== END 2024-06-09 23:59 | disposition home or self-care (01) ==
LOC: LABSPEC 15:45
PROVIDERS: PCP Family Medicine; Referring Provider Urology; Visit Provider Urology
DX: C61 Malignant neoplasm of prostate (principal)
CPT/HCPCS: 88305

== ENCOUNTER → 2024-06-30 | Outpatient (CLI) | payer MEDICARE, BC, SELFPAY ==
[2024-06-30 10:10] LABS: Absolute Lymphocyte Count 2.41 X10^3/uL (0.83-4.51); Absolute Neutrophil Count 3.5 X10^3/uL (2.0-7.7); Basophil# 0.09 X10^3/uL; Basophil% 1.3 % (0-1); Eosinophil# 0.15 X10^3/uL; Eosinophils% 2.2 % (0-5); Hemoglobin 15.2 g/dL (13.0-16.5); Lymphocyte # 2.41 X10^3/ul (0.83-4.51); Lymphocyte % 35.1 % (19-41); Mean Corpuscular Hgb 27.5 pg (27.0-32.0); Mean Corpuscular Volume 83.2 fL (80-94); Mean Platelet Vol. 9.9 fl (6.2-12.0); Monocyte# 0.67 X10^3/uL; Monocyte% 9.8 % (0-10); NRBC Flagged by Analyzer 0 % (0-5); Neutrophil # 3.52 X10^3/uL (2.7-7.7); Neutrophil % 51.3 % (47-70); Platelet Count 247 K/mm3 (150-450); RBC Distribution Width SD 42.6 fl (35.1-43.9); Red Blood Count 5.53 M/mm3 (4.6-6.2); White Blood Count 6.9 K/mm3 (4.4-11.0)
[2024-06-30 10:46] LABS: ALB/GLOB Ratio 1.4 RATIO (0.9-2.4); AST(SGOT) 16 U/L (<=37); Alanine Aminotransfer ALT/SGPT 12 U/L (<=46); Albumin, Serum 3.8 g/dL (3.4-4.8); Alkaline Phosphatase 96 U/L (40-129); Anion Gap 10 (5-15); BUN 18 mg/dL (4-19); BUN/Creat Ratio 21.1 RATIO (10-20); Carbon Dioxide 22.3 mmol/L (21.0-32.0); Chloride 106 mmol/L (98-108); Cholesterol 218 mg/dL (<=200); Creatinine, Serum 0.87 mg/dL (0.70-1.20); EST Glomerular Filtration Rate 94 (>60); Globulin 2.7 g/dL (2.2-4.2); Glucose 99 mg/dL (70-99); High Density Lipoprotein 55 mg/dL; Low Density Lipoprotein Calc. 143 mg/dL; PSA,Total- Diagnostic 4.87 ng/mL (0.00-4.00); Potassium 4.1 mmol/L (3.3-5.1); Protein, Total 6.5 g/dL (5.9-8.4); Sodium Level 138 mmol/L (133-145); Total Bilirubin 0.46 mg/dL (0.00-1.30); Triglycerides 98 mg/dL; Very Low Density Lipoprotein 20 mg/dL (5-40); cholesterol:hdl ratio screen 3.96
[2024-06-30 10:48] LABS: Microalbumin,Random Urine < 12.0 mg/L (NO RANGE EST.); Microalbumin:Creatinine Ratio UNABLE TO CALCULATE mg/g CRE
== END | disposition home or self-care (01) ==
LOC: MFPLAB 08:49
PROVIDERS: PCP Family Medicine; Referring Provider Family Medicine; Visit Provider Family Medicine
DX: I10 Essential (primary) hypertension (principal); C61 Malignant neoplasm of prostate; E66.811 Obesity, class 1; Z68.34 Body mass index [BMI] 34.0-34.9, adult; M48.061 Spinal stenosis, lumbar region without neurogenic claudication
CPT/HCPCS: 36415; 80053; 80061; 82043; 82570; 84153; 84443; 85025

== ENCOUNTER → 2024-10-10 | Outpatient (CLI) | payer MEDICARE, BC, SELFPAY ==
[2024-10-10 10:18] LABS: PSA,Total- Diagnostic 4.94 ng/mL (0.00-4.00)
== END | disposition home or self-care (01) ==
LOC: LAB 08:58
PROVIDERS: PCP Family Medicine; Referring Provider Nurse Practitioner; Visit Provider Nurse Practitioner
DX: C61 Malignant neoplasm of prostate (principal)
CPT/HCPCS: 36415; 84153

== ENCOUNTER → 2025-01-05 | Outpatient (CLI) | payer MEDICARE, BC, SELFPAY ==
--- NOTE | 2025-01-05 13:16 | MRI_ITS ---
PROCEDURE: MRI/Spine Cervical (Routine)
--- NOTE | 2025-01-05 13:16 | MRI_ITS ---
PROCEDURE: MRI/Spine Lumbar (Routine)
--- NOTE | 2025-01-05 13:16 | MRI_ITS ---
PROCEDURE: MRI/Brain W/WO Contrast
== END | disposition home or self-care (01) ==
LOC: MRI 13:04
PROVIDERS: PCP Family Medicine; Referring Provider Psychiatry & Neurology Neurology; Visit Provider Psychiatry & Neurology Neurology
DX: R42 Dizziness and giddiness (principal); R26.9 Unspecified abnormalities of gait and mobility; M47.812 Spondylosis without myelopathy or radiculopathy, cervical region; M47.816 Spondylosis without myelopathy or radiculopathy, lumbar region; H91.93 Unspecified hearing loss, bilateral; H93.19 Tinnitus, unspecified ear
CPT/HCPCS: 70553; 72141; 72148; A9575; A4216

== ENCOUNTER → 2025-01-30 | Outpatient (CLI) | payer MEDICARE, BC, SELFPAY ==
[2025-01-30 08:21] LABS: Hematocrit 48.1 % (40-54); Hemoglobin 15.8 g/dL (13.0-16.5); Mean Corp Hgb Conc 32.8 g/dL (32-36); Mean Corpuscular Volume 82.9 fL (80-94); Mean Platelet Vol. 9.9 fl (6.2-12.0); Platelet Count 227 K/mm3 (150-450); RBC Distribution Width CV 14.1 % (11.6-14.6); RBC Distribution Width SD 42.0 fl (35.1-43.9); Red Blood Count 5.80 M/mm3 (4.6-6.2); White Blood Count 6.3 K/mm3 (4.4-11.0)
[2025-01-30 09:10] LABS: AST(SGOT) 19 U/L (<=37); Alanine Aminotransfer ALT/SGPT 17 U/L (<=46); Albumin, Serum 4.0 g/dL (3.4-4.8); Alkaline Phosphatase 101 U/L (40-129); Anion Gap 12 (5-15); BUN 15 mg/dL (4-19); BUN/Creat Ratio 16.2 RATIO (10-20); Calcium,Total 8.8 mg/dL (7.6-11.0); Carbon Dioxide 23.2 mmol/L (21.0-32.0); Chloride 105 mmol/L (98-108); Globulin 2.7 g/dL (2.2-4.2); Glucose 96 mg/dL (70-99); Magnesium 2.2 mg/dL (1.5-2.2); Potassium 4.0 mmol/L (3.3-5.1); Vitamin B12 555 pg/mL (180-914)
[2025-02-01 12:08] LABS: Vitamin D 1,25-Dihydroxy 43.3 pg/mL (24.8-81.5)
[2025-02-04 22:06] LABS: Folate, Hemolysate Test 565.0 ng/mL (Not Estab.); Folate, RBC (Hct) Test 50.1 % (37.5-51.0); Folates, RBC Test 1128 ng/mL (>498); VITAMIN B6 4.4 ug/L (3.4-65.2); Vitamin B1, Thiamine 125.3 nmol/L (66.5-200.0)
== END | disposition home or self-care (01) ==
LOC: LAB 07:39
PROVIDERS: PCP Family Medicine; Referring Provider Psychiatry & Neurology Neurology; Visit Provider Psychiatry & Neurology Neurology
DX: R26.9 Unspecified abnormalities of gait and mobility (principal); R53.1 Weakness
CPT/HCPCS: 36415; 80053; 82607; 82652; 82747; 83735; 83883; 84207; 84425; 84443; 85014; 85027

== ENCOUNTER → 2025-02-08 | Outpatient (CLI) | payer MEDICARE, BC, SELFPAY ==
--- OUTSIDE RECORDS SUMMARY | 2025-02-08 06:51 | XMS RPT_ITS | CCD ---
Author Organization [facility] Care Team Providers Care Ux Ui Designer Name Role Phone Simeon SCALES, Dr. Fajardo Primary Care Provider Triston SCALES, Dr. Medina Attending Provider [phone] Triston SCALES, Dr. Medina Referring Provider [phone] Cory SCALES, Dr. Shiv Gamble Attending Provider [phone] Cory SCALES, Dr. Shiv Gamble Referring Provider Romy SCALES, Michelle Vasquez Unavailable Simeon SCALES, Scotty Pathak Unavailable Simeon SCALES, Dr. Fajardo Primary Care Provider Simeon SCALES, Dr. Fajardo Attending Provider Dr. Scotty Hendrix MD Referring Provider Nithya Condon Attending Provider [phone] Nithya Condon Referring Provider Dr. Scotty Hendrix MD Primary Care Physician Nithya Condon Attending Physician Dr. Scotty Hendrix MD Referring Provider Maria Del Carmen SCALES, Dr. Martinez Attending Physician Scotty Hendrix Primary Care Unavailable Juan Joyce Attending Unavailable Hendrix, Scotty Referring Unavailable Hendrix, Scotty Primary Care Unavailable Nithya Condon Attending Unavailable Nithya Condon Referring Unavailable Juan Joyce Attending Unavailable Juan Joyce Referring Unavailable Hendrix, Scotty Primary Care Unavailable Juan Joyce Attending Unavailable Juan Joyce Referring Unavailable Hendrix, Scotty Primary Care Unavailable Hendrix, Scotty Primary Care Unavailable Juan Joyce Attending Unavailable Juan Joyce Referring Unavailable Adam Goldstein Attending Unavailable Adam Goldstein Referring Unavailable Scotty Hendrix Primary Care Unavailable CoryShiv oliva Referring Unavailable Scotty Hendrix Primary Care Unavailable CoryShiv oliva Attending Unavailable Hendrix, Scotty Primary Care Unavailable Shiv Ray Attending Unavailable CoryShiv Referring Unavailable Hendrix, Scotty Primary Care Unavailable Scotty Hendrix Attending Unavailable Hendrix, Scotty Referring Unavailable Medications Current Medications Medication Drug Class(es) Dates Sig (Normalized) Sig (Original) bee pollen 550 mg oral capsule (1 source) Start: 12-21-2024 take 1 mg by mouth once daily gabapentin 300 mg oral capsule (6 sources) Anti-epileptic Agent Start: 12-21-2024 take 1 capsule by mouth three times daily Start: 12-08-2023 End: 12-21-2024 take 1 capsule by mouth twice daily Gabapentin 300 mg capsule Discontinued 300 mg PO TWICE A DAY December 08, 2023 12:00am December 21, 2024 8:52am take 1 tablet by ana th three times daily gabapentin ER 300 mg tablet,extended release 24 hr Take 1 tablet by mouth three times a day active Tita Schreiber [facility] ibuprofen 200 mg oral tablet (1 source) Nonsteroidal Anti-inflammatory Drug take 2 tablets by mouth every six hours as needed for pain Advil 200 mg tablet 2 tablet by mouth every six hours as needed for pain active Natalia Monahan LPN [facility] Multivitamin preparation (5 sources) Start: take 1 tablet by mouth once daily Multivitamin Active 1 TABLET PO DAILY March 27, 2020 12:00am Start: 03-27-2020 take 1 tablet by ana th once daily Multivitamin Active 1 TABLET PO DAILY March 27, 2020 1:00am Multivitamin tablet (4 sources) Start: 03-27-2020 Start: 03-27-2020 Multivitamin t ablet Active 1 {tbl} PO DAILY March 27, 2020 1:00am naproxen sodium 220 mg oral tablet (9 sources) Nonsteroidal Anti-inflammatory Drug Start: 03-27-2020 take 1 tablet by mouth twice daily as needed for pain Completed/Discontinued Medications Medication Drug Class(es) Dates Sig (Normalized) Sig (Original) ascorbic acid 500 mg oral tablet (9 sources) Vitamin C Start: 01-12-2016 End: 03-27-2020 take 1 tablet by mouth twice daily at mealtime Ascorbic Acid (Vitamin C) 500 MG tablet Discontinued 500 mg PO TWICE DAILY WITH MEALS January 12, 2016 12:00am March 27, 2020 12:22pm cefepime 2000 mg injection (9 sources) Cephalosporin Antibacterial Start: 01-12-2016 End: 03-27-2020 Cefepime 2 GM/12.5 ML recon soln Discontinued 2 g IV Q12H January 12, 2016 12:00am March 27, 2020 12:22pm cephalexin 500 mg oral capsule (4 sources) Cephalosporin Antibacterial Start: 12-11-2023 End: 12-30-2023 take 1 capsule by mouth twice daily Cephalexin 500 mg capsule Discontinued 500 mg PO TWICE A DAY 10 5 0 December 11, 2023 12:00am December 30, 2023 9:34am chromium picolinate 0.2 mg / gamboge 500 mg oral tablet (9 sources) Start: 03-27-2020 End: 12-21-2024 take 200-500 tablets by mouth twice daily at mealtime Chromium-Brindal Alex (Garcinia Cambogia) 200-500 mcg-mg tablet Discontinued 3 {tbl} PO TWICE A DAY March 27, 2020 1:00am December 21, 2024 8:52am administer with meals diclofenac sodium 0.01 mg/mg topical gel (9 sources) Nonsteroidal Anti-inflammatory Drug Start: 03-27-2020 End: 12-21-2024 apply 2 g topically once daily as needed Diclofenac Sodium (Voltaren) 1 % gel Discontinued 2 g TOPICAL DAILY as needed March 27, 2020 1:00am December 21, 2024 8:52am apply to single elbow, wrist or hand; for hand includes palm/fingers/back of hand diphenhydrAMINE hydrochloride 25 mg / naproxen sodium 220 mg oral tablet (9 sources) Histamine-1 Receptor Antagonist, Nonsteroidal Anti-inflammatory Drug Start: 03-27-2020 End: 12-21-2024 Naproxen-Diphenhy dramine (Aleve Pm) 220-25 mg tablet Discontinued 1 {tbl} PO BEDTIME as needed March 27, 2020 1:00am December 21, 2024 8:52am ferrous sulfate 325 mg oral tablet (9 sources) Start: 01-12-2016 End: 03-27-2020 take 1 tablet by mouth twice daily at mealtime Ferrous Sulfate 325 MG tablet Discontinued 325 mg PO TWICE DAILY WITH MEALS January 12, 2016 12:00am March 27, 2020 12:22pm 0.25 mg, 0.5 mg dose 1.5 ml semaglutide 1.34 mg/ml pen injector (4 sources) Start: 12-08-2023 End: 12-21-2024 Semaglutide 0.25 mg or 0.5 mg(2 mg/1.5 mL) pen injector Discontinued 0.5 mg SC EVERY WEEK December 08, 2023 12:00am December 21, 2024 8:52am vancomycin 1000 mg injection (9 sources) Glycopeptide Antibacterial Start: 01-12-2016 End: 03-27-2020 take 2000 mg intravenously every twelve hours Vancomycin 1,000 MG/20 ML recon soln Discontinued 2000 mg IV Q12H January 12, 2016 12:00am March 27, 2020 12:22pm Problems Active Problems Problem Classification Problem Date Documented Date Episodic/Chronic Acquired foot deformities (1 source) Hammer toe; Translations: [Other hammer toe(s) (acquired), left foot] Onset: 09-12-2024 09-12-2024 Chronic Acquired foot deformities (1 source) Acquired clawfoot, left foot Onset: 08-08-2024 08-08-2024 Episodic Cancer of prostate (1 source) Malignant neoplasm of prostate; Translations: [Malignant neoplasm of prostate] Onset: 10-14-2024 Chronic Conditions associated with dizziness or vertigo (3 sources) Loss of equilibrium; Translations: [Dizziness and giddiness] Onset: 01-14-2025 12-21-2024 Episodic Essential hypertension (1 source) Essential (primary) hypertension; Translations: [Essential (primary) hypertension] Onset: 07-05-2024 Chronic Neoplasms of unspecified nature or uncertain behavior (4 sources) Neoplasm of uncertain behavior of skin of chest; Translations: [Neoplasm of uncertain behavior of skin] 12-11-2023 Episodic Other and unspecified benign neoplasm (4 sources) Hemangioma of chest wall; Translations: [Hemangioma of other sites] 12-30-2023 Episodic Other connective tissue disease (1 source) Personal history of other diseases of the musculoskeletal system and connective tissue; Translations: [Personal history of other diseases of the musculoskeletal system and connective tissue] Onset: 01-03-2025 Episodic Other ear and sense organ disorders (2 sources) Hearing loss; Translations: [Unspecified hearing loss, unspecified ear] 12-21-2024 Chronic Other ear and sense organ disorders (1 source) Unspecified hearing loss, unspecified ear; Translations: [Unspecified hearing loss, unspecified ear] Onset: 12-21-2024 Chronic Other nervous system disorders (1 source) Ataxic gait; Translations: [Ataxic gait] Onset: 08-08-2024 08-09-2024 Episodic Other nervous system disorders (3 sources) Abnormal gait; Translations: [Unspecified abnormalities of gait and mobility] Episodic Other nervous system disorders (1 source) Anesthesia of skin; Translations: [Anesthesia of skin] Onset: 01-03-2025 Episodic Other nervous system disorders (2 sources) Unspecified abnormalities of gait and mobility; Translations: [Unspecified abnormalities of gait and mobility] Onset: 12-21-2024 Episodic Other non-epithelial cancer of skin (4 sources) Basal cell carcinoma of chest wall; Translations: [Basal cell carcinoma of skin of other part of trunk] 12-30-2023 Episodic Other non-traumatic joint disorders (1 source) Arthritis of right subtalar joint; Translations: [Other specified arthritis, right ankle and foot] Onset: 08-08-2024 08-08-2024 Chronic Other non-traumatic joint disorders (1 source) Impingement syndrome of ankle; Translations: [Other specified joint disorders, right ankle and foot] Onset: 08-08-2024 08-08-2024 Episodic Spondylosis; intervertebral disc disorders; other back problems (4 sources) Spondylosis without myelopathy or radiculopathy, cervical region; Translations: [Osteoarthritis of cervical spine] 12-21-2024 Chronic Unclassified (1 source) R26.9 - Unspecified abnormalities of gait and mobility Past or Other Problems Problem Classification Problem Date Documented Date Episodic/Chronic Other screening for suspected conditions (not mental disorders or infectious disease) (10 sources) Electrocardiogram abnormal; Translations: [Abnormal electrocardiogram [ECG] [EKG]] Onset: 06-27-2024 03-28-2020 Episodic Spondylosis; intervertebral disc disorders; other back problems (2 sources) Spinal stenosis, lumbar region with neurogenic claudication; Translations: [Radiculopathy, lumbosacral region] Onset: 03-04-2024 Episodic Results Test Name Value Interpretation Reference Range Facility Inital Evaluation (1) - PTon 01-10-2025 Inital Evaluation (1) - PT [facility] [address] [place] [address] / REHABILITATION SERVICES INITIAL EVALUATION MR#: [id number] Acct: [id number] Name: ARIAS WAGNER Rep #: [id number] : 1955 69 From: Teo Obregon PT, ATC Referring Dr.: Dr. Juan Joyce MD Status: REG RCR Insurance: MEDICARE PART A B ANTHEM Patient's Visit Information Visit Information Visit Information: ARIAS WAGNER is a 69 year old M referred to Physical Therapy by Dr. Juan Joyce MD with a diagnosis of Gait abnormality. Date of Evaluation: 01/10/25 Physical Therapist: Teo Obregon, PT, ATC Visit Plan Frequency: 2x /Week Duration: 4-6 Weeks Plan: B LE strengthening, core stab ex's, balance and proprio, nustep, and HEP Subjective Subjective: Pt reports he has had an abnormal gait for a couple years. pt notes he has had PT in the past which seemed to help, but notes he is becoming more unsteady for a while. Pt notes he has had MRI's on his LB/neck/and brain, which showed narrowing throughout his spine. Pt notes he has fallen a couple times lately. pt reports the last fall was at the fire pit when he went to stand up and just fell backwards. Pt reports he has good sensation in his feet. Pt reports he does get light headed on occasion, but that occurs less often when he drinks a lot of water. Pt is currently being treated for prostate cancer at this time, just monitoring the growth at this time. Pt denies being in any pain at this time. Objective Objective: Neuro: B LE sensation is WNL to light touch. TU.5 sec MMT: B LE's are grossly 4-/5 FGA: Gait: Pt ambulated 150 feet today with CGAx1. Pt experienced one LOB during session. Balance/Special Test Scores Functional Gait Assessment Score: 17 % Disability: 43.3400 Lower Extremity Functional Score: 38 Goals Goal 1:: Increase B LE strength x 1 grade to aid with stair negotiation Goal Time Frame: 4-6 Weeks Goal 2:: Increase FGA score by 5 points to aid with preventing future falls Goal Time Frame: 4-6 Weeks Goal 3:: Pt will perform TUG in under 10 seconds to aid with gait efficiency Goal Time Frame: 4-6 Weeks Goal 4:: I with HEP Goal Time Frame: 4-6 Weeks Rehabilitation Potential Physical Therapy Diagnosis: Pt displays and abnormal gait, has LE weakness, and a Hx of falls secondary to degenerative changes. Rehabilitation Potential: Good Anticipated Interventions Patient/Client Instruction: Educate patient on: Condition and Plan of Care For the Purpose of:: To improve self management Therapeutic Exercise to Include: Strength training, Endurance training, Balance training, Gait and locomotor training, Active ROM and Dynamic Lumbar Stabilization For the Purpose of:: To decrease pain, To increase ROM and To improve muscle performance and motor function Cryotherapy (ice pack, ice massage): Yes For the Purpose of:: To decrease pain Text: Thank you for the opportunity to evaluate your patient. For Medicare and Medicare HMO plans, please review the plan of care and approve it. It will need to be FAXED BACK to us at [phone] for Medicare purposes. For Medicare only, by signing this I certify the plan of care. Please let me know if there are questions or concerns regarding this plan of care. Physician Signature: D ate: 01/10/25 1653 CC: Dr. Scotty Hendrix MD; Dr. Juan Joyce MD [facility] Signed Normal [facility] Brain W/WO Contraston 2024 Brain W/WO Contrast [facility] [address] [place] [address] Brain W/WO Contrast MR#: [id number] Acct: [id number] Name: ARIAS WAGNER Rep #: [id number] : 1955 M 69 From: Valeria britt MD PCP: Dr. Scotty Hendrix MD Status: REG CLI Study: Brain W/WO Contrast Date of Exam: 01/05/25 Exam# [id number] Ordering Dr: Juan Joyce MD PROCEDURE: BRAIN W/WO CONTRAST 01/05/2025 REASON FOR EXAM: GAIT D/O; DYSEQUILIBRUIM; TINNITUS; B HEARING LOSS TECHNIQUE: Procedure Code: [id number] Modality: MR Procedure: BRAIN W/WO CONTRAST Multiplanar and multisequence images were obtained. CONTRAST: Clariscan VOLUME: 25 mL FINDINGS: No acute or hyperacute infarcts. No intracerebral or extra-axial acute hemorrhage. No obvious enhancing masses. Bilateral cerebral periventricular and subcortical high T2/FLAIR WI signal. Bilateral high frontal subcortical small chronic lacunar infarcts. Normal MRI signal of the cerebellar hemispheres and brain stem. Dilated ventricular system, cortical sulci and extra-axial CSF spaces. No shift of midline structures. Normal comparable sizes of the seventh and eighth cranial nerves on both sides. No obvious related vascular loops or masses. No cerebello-pontine angle masses detected. The examined mastoid air cells are clear. Normal appearance of the semicircular canals, vestibules and cochlea on both sides. Normal MRI appearance of orbital structures, both globes, optic nerves, optic chiasm, optic tracts and optic radiations. Scanned paranasal sinuses are unremarkable. MRI/Brain W/WO Contrast IMPRESSION: No acute infarcts. No intracerebral or extra-axial hematomas. No enhancing masses. Bilateral cerebral microvascular ischemic changes. Brain involutional changes. Reading Location[facility] CC: Dr. Scotty Hendrix MD; Dr. Juan Joyce MD Mottler Operator: Signed Normal [facility] Spine Cervical (Routine)on Spine Cervical (Routine) [facility] Services [address] [place] [address] Spine Cervical (Routine) MR#: [id number] Acct: [id number] Name: ARIAS WAGNER Rep #: [id number] : 1955 M 69 From: Aston Santiago MD PCP: Dr. Scotty Hendrix MD Status: REG CLI Study: Spine Cervical (Routine) Date of Exam: Exam# [id number] Ordering Dr: Juan Joyce MD PROCEDURE: SPINE CERVICAL (ROUTINE) 01/05/2025 REASON FOR EXAM: CERVICAL DEGENERATIVE JOINT DISEASE; GAIT DISORDER TECHNIQUE: Procedure Code: MRISPC Modality: MR Procedure: SPINE CERVICAL (ROUTINE) Multiplanar and multisequence images were obtained without IV contrast administration. COMPARISON: None FINDINGS: Vertebrae: No fracture seen. Very minimal bone marrow edema of the opposing endplates of C5/6. Alignment: Straightened. Partial ankylosis of C6 and C7. No spondylolisthesis. Spinal Cord: No cord atrophy, syrinx or mass seen. C2-3: Minimal, diffuse disc bulge. Moderate left facet hypertrophy. Severe right facet hypertrophy. Central stenosis to 8 mm AP. However, there is CSF around the cord. Hfmym-tnpyxoc-bqzq-l eft exit foraminal narrowing. C3-4: Mild loss of disc height. Minimal, diffuse disc osteophyte. Hfiarlry-ci-aadzjg facet hypertrophy on the left. Minimal left facet hypertrophy. Central stenosis to 9.6 mm AP. CSF is seen around the cord. Left exit foraminal narrowing is present. C4-5: Mild loss of disc height. Minimal, diffuse disc osteophyte. Severe facet hypertrophy on the left. Some thickening of ligamentum flavum on the left. Central stenosis to 9.2 mm AP. Effacement of the central canal left posteriorly from facet and ligamentum. Borderline right exit foraminal narrowing. Severe left exit foraminal narrowing C5-6: Moderate disc space narrowing. Moderate, diffuse disc osteophyte and uncinate spurring. Mdjuvnsf-kz-ysnniv facet hypertrophy on the left and mild right facet hypertrophy. Central stenosis to 9.8 mm AP. CSF is seen around the cord. Mild bilateral exit foraminal narrowing. C6-7: Rudimentary disc space. Ankylosis at this level. No central stenosis or exit foraminal narrowing. C7-T1: Mild facet hypertrophy. MRI/Spine Cervical (Routine) IMPRESSION: 1. Straightening of the cervical lordosis. Partial ankylosis C5/6. 2. Multilevel spinal stenosis but no abnormal cord signal. Multilevel exit foraminal narrowing. See above descriptions. Reading Location: [id number] CC: Dr. Scotty Hendrix MD; Dr. Juan Joyce MD Mottler Operator: Signed Normal [facility] Spine Lumbar (Routine)on Spine Lumbar (Routine) [facility] Services [address] [place] [address] Spine Lumbar (Routine) MR#: [id number] Acct: [id number] Name: ARIAS WAGNER Rep #: [id number] : 1955 M 69 From: [place] Bahena MD PCP: Dr. Scotty Hendrix MD Status: REG CLI Study: Spine Lumbar (Routine) Date of Exam: 01/05/25 Exam# [id number] Ordering Dr: Juan Joyce MD PROCEDURE: SPINE LUMBAR (ROUTINE) 01/05/2025 REASON FOR EXAM: LUMBAR DEGENERATIVE JOINT DISEASE; GAIT DISORDER TECHNIQUE: Procedure Code: MRISPL Modality: MR Procedure: SPINE LUMBAR (ROUTINE) COMPARISON: None. FINDINGS: Vertebrae: Preserved in height. Opposite Modic changes type 2 and type 3 and multiple level, predominantly at L4-L5. Tthe last designated disc was labeled L5-S1. Sacralization of L5. Alignment: Retrolisthesis L1 on L2 by 2 mm. Retrolisthesis L2 on L3 by 2 mm. Retrolisthesis L3 on L4 by 2 mm. Retrolisthesis L4 on L5 by 1 mm. Conus Medullaris: Unremarkable. T11-T12: Disc desiccation. Disc bulge. Facet joint arthropathy. Severe bilateral foramina stenosis. Mild canal stenosis. T12-L1: Disc bulge. Disc desiccation. Facet joint arthropathy. Severe bilateral foramina stenosis. Mild canal stenosis. L1-2: Disc bulge. Facet arthropathy. Ligamentum flavum hypertrophy. Severe bilateral foramina stenosis. Severe canal stenosis. L2-3: Disc desiccation. Disc bulge. Facet joint arthropathy. Severe right and mild left foramina stenosis. Moderate canal stenosis. L3-4: Disc desiccation. Disc bulge. Facet joints arthropathy. Severe bilateral foramina stenosis. Severe canal stenosis. L4-5: Disc desiccation. Disc bulge. Facet joint arthropathy. Severe bilateral foramina stenosis and severe canal stenosis. L5-S1: No foraminal or canal stenosis. Sacrum: Unremarkable. MRI/Spine Lumbar (Routine) IMPRESSION: Extensive degenerative changes of the spine as detailed predominantly for severe canal stenosis at L1-L2 and L3-L4 and L4-L5. Multilevel foraminal stenoses from facet joint arthropathy as detailed. Reading Location: [facility] CC: Dr. Scotty Hendrix MD; Dr. Juan Joyce MD Mottler Operator: Signed Normal [facility] Neurology Visit Reporton Neurology Visit Report [facility] [address] [place] [address], [address] [place] [address] OFFICE VISIT Date of Service: 12/21/24 MR#: [id number] Acct: [id number] Name: ARIAS WAGNER Rep #: [id number] : 1955 Provider: Dr. Juan robles MD Age/Sex: 69/M Location: [facility]. Status: Signed with Addenda ADDENDUM by Dr. Juan Joyce MD on 12/21/24 at 1824 Addendum Addendum (12/21/2024): Standing blood pressure was 142/93 on 12/21/2024. 12/21/241823 Date Juan Joyce MD cc: Dr. Michelle Stanton MD; Dr. Scotty Hendrix MD * Signed HPI HPI Chief Complaint: Establish Care Details: History: The patient is a 69-year-old right-handed male with a past medical history of prostate cancer (this is being monitored and has been untreated) who presents for evaluation of gait imbalance. He began to have gait imbalance around 2016. At that time, he had right hip pain and on evaluation was found to have degenerative joint disease of the right hip. He underwent a right total hip replacement in 2016 which was of benefit for his pain though his gait imbalance persisted. He has had low back pain and right lower extremity radicular pain and has seen a paint brush maker, Dr. Goldstein. Around 2022, he received lumbar injections and he is also currently being treated with gabapentin and he is no longer experiencing significant low back pain or lower extremity radicular pain. He denies having neck pain. He denies having numbness. He reports having generalized weakness. He denies having recent headaches or vision change. He strained his right foot when he was in college and on assessment in subsequent years was thought to possibly have had a right foot fracture at the time of his foot strain. He subsequently underwent right foot/ankle surgery for removal of bone in 1989. He continues to experience intermittent sharp right foot pain that occurs at times when he ambulates and as a result of this, he ambulates with a guarding of his right foot by internally turning the right foot when he takes steps. He is currently seeing an orthopedic surgeon, Dr. Stanton, regarding his right foot pain and hammertoes of the left foot and surgery is being considered however due to his gait imbalance a referral was made to this office. He had physical therapy earlier in 2024 and this was of benefit for his gait. Lumbar x-rays from 2015 reveal multilevel degenerative joint disease. Cervical spine x-rays from 2009 reveal mild degenerative joint disease. He has had over 20 falls since 2022. He states that the majority of his falls are triggered by acute right ankle pain that causes his right leg to buckle. He occasionally experiences disequilibrium and lightheadedness however these are not generally temporally related with his falls. He has chronic bilateral hearing loss and is to obtain hearing aids. He has tinnitus. Past Medical History: As above. There is no history of hypertension, diabetes mellitus, heart disease, lung disease, stroke, seizure, thyroid disease, renal disease, sleep apnea, or hyperlipidemia. Social History: There is no history of smoking tobacco. There is no history of alcohol abuse or illicit drug use. Family History: There is no family history of cerebral aneurysm, seizure, stroke, or neuropathy. Review of Systems: As above. The patient has not had any recent fever, rash, weight change, chest pain, shortness of breath, gastrointestinal problems or urinary problems. He has insomnia. He denies having depression or anxiety. Physical Exam: General: Well-developed, well-nourished male in no acute distress. Neuro: The patient is awake and alert and responds appropriately; speech is fluent; language function is within normal limits Cranial nerves: PERRL, 3mm bilaterally; EOMI; visual swartz are full; visual acuity is 20/30 on the left and 20/25 on the right; face is symmetrical; tongue is midline; there are no deficits to pinprick Cerebellar system: No nystagmus; no dysmetria in the upper extremities or lower extremities Deep tendon reflexes: +2 at the right brachioradialis, right biceps, and triceps bilaterally, +1 at the left brachioradialis, absent at the left biceps, knees, and ankles; plantar responses are upward on the right and equivocal on the left Motor: Strength 5/5 in the biceps bilaterally, triceps bilaterally, deltoid bilaterally, first dorsal interosseous muscles bilaterally, iliopsoas bilaterally, quadriceps bilaterally and foot dorsiflexors bilaterally, and 4/5 in the abductor pollicis brevis bilaterally; no drift Sensory: There are no deficits to soft touch or pinprick; decreased vibration is noted in both feet Gait: Slow and mildly unsteady; he internally rotates his right foot when he ambulates; Romberg is negative; he has difficulty performing heel-to-toe walki (more content not included)... Normal [facility] PSA,Total- [employer] PSA, DIAGNOSTIC 4.94 ng/mL High 0.00-4.00 [facility] Comment on above: Result Comment: This test was performed using the [facility] [employer] tPSA method. Measured values of a patient??sample can vary depending on the testing procedure used. PSA values determined on patient samples by different testing procedures cannot be used interchangeably. If there is a change in PSA assays while monitoring therapy, sequential testing should be performed to confirm baseline values. Performed By: #### L 501.9940 #### [facility] [address] [place], [address] Relevant diagnostic tests/la boratory data Narrativeon 10-03-2024 Fall risk assessment no [facility] Work Phone: MEDS REVIEW Documentation of current medications (procedure) [employer] Work Phone: MEDS REVIEWD Medications reviewed without changes [place] [facility] Work Phone: Absolute lymphocyte countOrd ered By: Scotty Hendrix on 06-30-2024 Lymphocytes Auto (Unsp spec) [#/Vol] 2.41 10*3/uL 0.83-4.51 [facility] Absolute neutrophil countOrd ered By: Scotty Hendrix on 06-30-2024 Neutrophils (Bld) [#/Vol] 3.5 10*3/uL 2.0-7.7 [facility] Anion gap in Serum or Plasma Ordered By: Scotty Hendrix on 06-30-2024 Anion gap [Moles/Vol] 10 mmol/L 5-15 [facility] Automated lymphocyte count a s percentage of total leukocytesOrdered By: Scotty Hendrix on 06-30-2024 Lymphocytes/100 WBC Auto (Unsp spec) 35.1 % 19-41 [facility] BUN/creatinine ratioOrdered By: Scotty eHndrix on 06-30-2024 Urea nitrogen/Creatinine [Mass ratio] 21.1 mg/mg High 10-20 [facility] Basophil percentageOrdered B y: Scotty Hendrix on 06-30-2024 Basophils/100 WBC (Bld) 1.3 % High 0-1 [facility] Bilirubin, totalOrdered By: Scotty Hendrix on 06-30-2024 Bilirubin [Mass/Vol] 0.46 mg/dL 0.00-1.30 [facility] CBC W/Diff, Automatedon 06-08 Absolute Lymph 2.41 X10 3/uL Normal 0.83-4.51 [facility] Comment on above: Order Comment: Order Date: 06/30/24 Order Info: [id number] - CBCD Comments: cc copy to Proa?occ copy to Proa?o Performed By: #### L 100.0100, L500.4100, L500.4050, L501.9940, L501.9520 #### [facility] [address] [place], [address] Absolute Neut 3.5 X10 3/uL Normal 2.0-7.7 [facility] Comment on above: Order Comment: Order Date: 06/30/24 Order Info: [id number] - CBCD Comments: cc copy to Proa?occ copy to Proa?o Performed By: #### L 100.0100, L500.4100, L500.4050, L501.9940, L501.9520 #### [facility] [address] [place], [address] Basophils/100 WBC (Bld) 1.3 % High 0-1 [facility] Comment on above: Order Comment: Order Date: 06/30/24 Order Info: [id number] - CBCD Comments: cc copy to Proa?occ copy to Proa?o Performed By: #### L 100.0100, L500.4100, L500.4050, L501.9940, L501.9520 #### [facility] [address] [place], [address] Eosinophils/100 WBC (Bld) 2.2 % Normal 0-5 [facility] Comment on above: Order Comment: Order Date: 06/30/24 Order Info: [id number] - CBCD Comments: cc copy to Proa?occ copy to Proa?o Performed By: #### L 100.0100, L500.4100, L500.4050, L501.9940, L501.9520 #### [facility] [address] [place], [address] Erythrocyte distribution width (RBC) [Ratio] 14.0 % Normal 11.6-14.6 [facility] Comment on above: Order Comment: Order Date: 06/30/24 Order Info: [id number] - CBCD Comments: cc copy to Proa?occ copy to Proa?o Performed By: #### L 100.0100, L500.4100, L500.4050, L501.9940, L501.9520 #### [facility] [address] [place], [address] Hematocrit (Bld) [Volume fraction] 46.0 % Normal 40-54 [facility] Comment on above: Order Comment: Order Date: 06/30/24 Order Info: [id number] - CBCD Comments: cc copy to Proa?occ copy to Proa?o Performed By: #### L 100.0100, L500.4100, L500.4050, L501.9940, L501.9520 #### [facility] [address] [place], [address] Hemoglobin (Bld) [Mass/Vol] 15.2 g/dL Normal 13.0-16.5 [facility] Comment on above: Order Comment: Order Date: 06/30/24 Order Info: [id number] - CBCD Comments: cc copy to Proa?occ copy to Proa?o Performed By: #### L 100.0100, L500.4100, L500.4050, L501.9940, L501.9520 #### [facility] [address] [place], [address] IG% 0.300 Normal 0.0-0.9 [facility] Comment on above: Order Comment: Order Date: 06/30/24 Order Info: [id number] - CBCD Comments: cc copy to Proa?occ copy to Proa?o Result Comment: IG% - Immature Granulocytes (promyelocytes, myelocytes and metamyelocytes) > 1% indicates that a LEFT SHIFT is Present. Performed By: #### L 100.0100, L500.4100, L500.4050, L501.9940, L501.9520 #### [facility] [address] [place], [address] Lymphocytes/100 WBC (Bld) 35.1 % Normal 19-41 [facility] Comment on above: Order Comment: Order Date: 06/30/24 Order Info: [id number] - CBCD Comments: cc copy to Proa?occ copy to Proa?o Performed By: #### L 100.0100, L500.4100, L500.4050, L501.9940, L501.9520 #### [facility] [address] [place], [address] MCH (RBC) [Entitic mass] 27.5 pg Normal 27.0-32.0 [facility] Comment on above: Order Comment: Order Date: 06/30/24 Order Info: [id number] - CBCD Comments: cc copy to Proa?occ copy to Proa?o Performed By: #### L 100.0100, L500.4100, L500.4050, L501.9940, L501.9520 #### [facility] [address] [place], [address] MCHC (RBC) [Mass/Vol] 33.0 g/dL Normal 32-36 [facility] Comment on above: Order Comment: Order Date: 06/30/24 Order Info: [id number] - CBCD Comments: cc copy to Proa?occ copy to Proa?o Performed By: #### L 100.0100, L500.4100, L500.4050, L501.9940, L501.9520 #### [facility] [address] [place], [address] MCV (RBC) [Entitic vol] 83.2 fL Normal 80-94 [facility] Comment on above: Order Comment: Order Date: 06/30/24 Order Info: [id number] - CBCD Comments: cc copy to Proa?occ copy to Proa?o Performed By: #### L 100.0100, L500.4100, L500.4050, L501.9940, L501.9520 #### [facility] [address] [place], [address] Monocytes/100 WBC (Bld) 9.8 % Normal 0-10 [facility] Comment on above: Order Comment: Order Date: 06/30/24 Order Info: [id number] - CBCD Comments: cc copy to Proa?occ copy to Proa?o Performed By: #### L 100.0100, L500.4100, L500.4050, L501.9940, L501.9520 #### [facility] [address] [place], [address] Neutrophils/100 WBC (Bld) 51.3 % Normal 47-70 [facility] Comment on above: Order Comment: Order Date: 06/30/24 Order Info: [id number] - CBCD Comments: cc copy to Proa?occ copy to Proa?o Performed By: #### L 100.0100, L500.4100, L500.4050, L501.9940, L501.9520 #### [facility] [address] [place], [address] Nucleated RBC (Bld) [#/Vol] 0 10*3/uL Normal 0-5 [facility] Comment on above: Order Comment: Order Date: 06/30/24 Order Info: [id number] - CBCD Comments: cc copy to Proa?occ copy to Proa?o Performed By: #### L 100.0100, L500.4100, L500.4050, L501.9940, L501.9520 #### [facility] [address] [place], [address] Platelet mean volume (Bld) [Entitic vol] 9.9 fL Normal 6.2-12.0 [facility] Comment on above: Order Comment: Order Date: 06/30/24 Order Info: [id number] - CBCD Comments: cc copy to Proa?occ copy to Proa?o Performed By: #### L 100.0100, L500.4100, L500.4050, L501.9940, L501.9520 #### [facility] [address] [place], [address] Platelets (Bld) [#/Vol] 247 10*3/uL Normal 150-450 [facility] Comment on above: Order Comment: Order Date: 06/30/24 Order Info: [id number] - CBCD Comments: cc copy to Proa?occ copy to Proa?o Performed By: #### L 100.0100, L500.4100, L500.4050, L501.9940, L501.9520 #### [facility] [address] [place], [address] RBC (Bld) [#/Vol] 5.53 10*6/uL Normal 4.6-6.2 [facility] Comment on above: Order Comment: Order Date: 06/30/24 Order Info: [id number] - CBCD Comments: cc copy to Proa?occ copy to Proa?o Performed By: #### L 100.0100, L500.4100, L500.4050, L501.9940, L501.9520 #### [facility] [address] [place], [address] RDW SD 42.6 fl Normal 35.1-43.9 [facility] Comment on above: Order Comment: Order Date: 06/30/24 Order Info: [id number] - CBCD Comments: cc copy to Proa?occ copy to Proa?o Performed By: #### L 100.0100, L500.4100, L500.4050, L501.9940, L501.9520 #### [facility] [address] [place], [address] WBC (Bld) [#/Vol] 6.9 10*3/uL Normal 4.4-11.0 [facility] Comment on above: Order Comment: Order Date: 06/30/24 Order Info: [id number] - CBCD Comments: cc copy to Proa?occ copy to Proa?o Performed By: #### L 100.0100, L500.4100, L500.4050, L501.9940, L501.9520 #### [facility] [address] [place], [place], [address] Calculated very low density lipoprotein (VLDL) cholesterol measurementOrdered By: Scotty Hendrix on 06-30-2024 Calculated very low density lipoprotein (VLDL) cholesterol measurement 20 mg/dL 5-40 [facility] Carbon dioxide, total [Moles /volume] in Central venous bloodOrdered By: Scotty Hendrix on 06-30-2024 CO2 [Moles/Vol] 22.3 mmol/L 21.0-32.0 [facility] Chloride assayOrdered By: Javid Hendrix on 06-30-2024 Chloride [Moles/Vol] 106 mmol/L 98-108 [facility] Comprehensive Metabolic Prof ilon 06-30-2024 Albumin [Mass/Vol] 3.8 g/dL Normal 3.4-4.8 [facility] Comment on above: Order Comment: Order Date: 06/30/24Order Info: [id number] - CMPOrder Info: [id number] - LIPIDOrder Info: 63 - TSHOrder Info: [id number] - PSADComments: cc copy to Proa?occ copy to Proa?o Performed By: #### L 100.0100, L500.4100, L500.4050, L501.9940, L501.9520 ####[facility] [address] [place], [address] Albumin/Globulin [Mass ratio] 1.4 {ratio} Normal 0.9-2.4 [facility] Comment on above: Order Comment: Order Date: 06/30/24Order Info: [id number] - CMPOrder Info: [id number] - LIPIDOrder Info: [id number] - TSHOrder Info: [id number] - PSADComments: cc copy to Proa?occ copy to Proa?o Performed By: #### L 100.0100, L500.4100, L500.4050, L501.9940, L501.9520 ####[facility] [address] [place], [place], [id number] ALK PHOS 96 U/L Normal 40-129 [facility] Comment on above: Order Comment: Order Date: 06/30/24Order Info: 07- - CMPOrder Info: [id number] - LIPIDOrder Info: [id number] - TSHOrder Info: [id number] - PSADComments: cc copy to Proa?occ copy to Proa?o Performed By: #### L 100.0100, L500.4100, L500.4050, L501.9940, L501.9520 ####[facility] [address] [place], [address] ALT [Catalytic activity/Vol] 12 U/L Normal <=46 [facility] Comment on above: Order Comment: Order Date: 06/30/24Order Info: [id number]- - CMPOrder Info: [id number] - LIPIDOrder Info: 6-3 - TSHOrder Info: 83-1 - PSADComments: cc copy to Proa?occ copy to Proa?o Performed By: #### L 100.0100, L500.4100, L500.4050, L501.9940, L501.9520 ####[facility] [address] [place], [address] AST [Catalytic activity/Vol] 16 U/L Normal <=37 [facility] Comment on above: Order Comment: Order Date: 06/30/24Order Info: [id number]- - CMPOrder Info: [id number] - LIPIDOrder Info: 3 - TSHOrder Info: [id number] - PSADComments: cc copy to Proa?occ copy to Proa?o Performed By: #### L 100.0100, L500.4100, L500.4050, L501.9940, L501.9520 ####[facility] [address] [place], [address] Bilirubin [Mass/Vol] 0.46 mg/dL Normal 0.00-1.30 [facility] Comment on above: Order Comment: Order Date: 06/30/24Order Info: [id number] - CMPOrder Info: [id number] - LIPIDOrder Info: 6-3 - TSHOrder Info: 83-1 - PSADComments: cc copy to Proa?occ copy to Proa?o Performed By: #### L 100.0100, L500.4100, L500.4050, L501.9940, L501.9520 ####[facility] [address] [place], [address] BUN/CRE 21.1 RATIO High 10-20 [facility] Comment on above: Order Comment: Order Date: 06/30/24Order Info: 785- - CMPOrder Info: [id number] - LIPIDOrder Info: 3 - TSHOrder Info: 83- - PSADComments: cc copy to Proa?occ copy to Proa?o Performed By: #### L 100.0100, L500.4100, L500.4050, L501.9940, L501.9520 ####[facility] [address] [place], [address] Calcium [Mass/Vol] 9.0 mg/dL Normal 7.6-11.0 [facility] Comment on above: Order Comment: Order Date: 06/30/24Order Info: 785- - CMPOrder Info: [id number] - LIPIDOrder Info: 3 - TSHOrder Info: 83-1 - PSADComments: cc copy to Proa?occ copy to Proa?o Performed By: #### L 100.0100, L500.4100, L500.4050, L501.9940, L501.9520 ####[facility] [address] [place], [address] Chloride [Moles/Vol] 106 mmol/L Normal 98-108 [facility] Comment on above: Order Comment: Order Date: 06/30/24Order Info: 86-1 - CMPOrder Info: [id number] - LIPIDOrder Info: 6-3 - TSHOrder Info: 83-1 - PSADComments: cc copy to Proa?occ copy to Proa?o Performed By: #### L 100.0100, L500.4100, L500.4050, L501.9940, L501.9520 ####[facility] [address] [place], [address] CO2 [Moles/Vol] 22.3 mmol/L Normal 21.0-32.0 [facility] Comment on above: Order Comment: Order Date: 06/30/24Order Info: 86-1 - CMPOrder Info: [id number] - LIPIDOrder Info: [id number] - TSHOrder Info: 83-1 - PSADComments: cc copy to Proa?occ copy to Proa?o Performed By: #### L 100.0100, L500.4100, L500.4050, L501.9940, L501.9520 ####[facility] [address] [place], [place], [id number] Creatinine [Mass/Vol] 0.87 mg/dL Normal 0.70-1.20 [facility] Comment on above: Order Comment: Order Date: 06/30/24Order Info: 785- - CMPOrder Info: [id number] - LIPIDOrder Info: 63 - TSHOrder Info: 83-1 - PSADComments: cc copy to Proa?occ copy to Proa?o Performed By: #### L 100.0100, L500.4100, L500.4050, L501.9940, L501.9520 ####[facility] [address] [place], [address] GAP 10 Normal 5-15 [facility] Comment on above: Order Comment: Order Date: 06/30/24Order Info: 785- - CMPOrder Info: [id number] - LIPIDOrder Info: 6-3 - TSHOrder Info: [id number] - PSADComments: cc copy to Proa?occ copy to Proa?o Performed By: #### L 100.0100, L500.4100, L500.4050, L501.9940, L501.9520 ####[facility] [address] [place], [address] GFR/1.73 sq M.predicted among non-blacks MDRD (S/P/Bld) [Vol rate/Area] 94 mL/min/{1.73_m2} Normal >60 [facility] Comment on above: Order Comment: Order Date: 06/30/24Order Info: 785- - CMPOrder Info: [id number] - LIPIDOrder Info: 6-3 - TSHOrder Info: [id number] - PSADComments: cc copy to Proa?occ copy to Proa?o Result Comment: mL/m in/1.73m2 CKD-EPI Creatinine Equation (2020) Performed By: #### L 100.0100, L500.4100, L500.4050, L501.9940, L501.9520 ####[facility] [address] [place], [address] Globulin (S) [Mass/Vol] 2.7 g/dL Normal 2.2-4.2 [facility] Comment on above: Order Comment: Order Date: 06/30/24Order Info: 785- - CMPOrder Info: [id number] - LIPIDOrder Info: 6-3 - TSHOrder Info: [id number] - PSADComments: cc copy to Proa?occ copy to Proa?o Performed By: #### L 100.0100, L500.4100, L500.4050, L501.9940, L501.9520 ####[facility] [address] [place], [address] Glucose [Mass/Vol] 99 mg/dL Normal 70-99 [facility] Comment on above: Order Comment: Order Date: 06/30/24Order Info: 07- - CMPOrder Info: [id number] - LIPIDOrder Info: [id number] - TSHOrder Info: [id number] - PSADComments: cc copy to Proa?occ copy to Proa?o Performed By: #### L 100.0100, L500.4100, L500.4050, L501.9940, L501.9520 ####[facility] [address] [place], [address] Potassium [Moles/Vol] 4.1 mmol/L Normal 3.3-5.1 [facility] Comment on above: Order Comment: Order Date: 06/30/24Order Info: 86-1 - CMPOrder Info: [id number] - LIPIDOrder Info: 3 - TSHOrder Info: [id number] - PSADComments: cc copy to Proa?occ copy to Proa?o Performed By: #### L 100.0100, L500.4100, L500.4050, L501.9940, L501.9520 ####[facility] [address] [place], [address] Sodium [Moles/Vol] 138 mmol/L Normal 133-145 [facility] Comment on above: Order Comment: Order Date: 06/30/24Order Info: 785- - CMPOrder Info: [id number] - LIPIDOrder Info: [id number] - TSHOrder Info: 83-1 - PSADComments: cc copy to Proa?occ copy to Proa?o Performed By: #### L 100.0100, L500.4100, L500.4050, L501.9940, L501.9520 ####[facility] [address] [place], [address] T PROT 6.5 g/dL Normal 5.9-8.4 [facility] Comment on above: Order Comment: Order Date: 06/30/24Order Info: [id number]- - CMPOrder Info: [id number] - LIPIDOrder Info: 3 - TSHOrder Info: [id number] - PSADComments: cc copy to Proa?occ copy to Proa?o Performed By: #### L 100.0100, L500.4100, L500.4050, L501.9940, L501.9520 ####[facility] [address] [place], [place], [id number] Urea nitrogen [Mass/Vol] 18 mg/dL Normal 4-19 [facility] Comment on above: Order Comment: Order Date: 06/30/24Order Info: [id number] - CMPOrder Info: [id number] - LIPIDOrder Info: [id number] - TSHOrder Info: [id number] - PSADComments: cc copy to Proa?occ copy to Proa?o Performed By: #### L 100.0100, L500.4100, L500.4050, L501.9940, L501.9520 ####[facility] [address] [place], [place], [address] Eosinophil percentageOrdered By: Scotty Hendrix on 06-30-2024 Eosinophils/100 WBC (Bld) 2.2 % 0-5 [facility] Erythrocyte distribution wid th ratioOrdered By: Scotty Hendrix on 06-30-2024 Erythrocyte distribution width (RBC) [Ratio] 14.0 % 11.6-14.6 [facility] Erythrocyte distribution wid th standard deviationOrdered By: Scotty Hendrix on 06-30-2024 Erythrocyte distribution width (RBC) [Ratio] 42.6 fl 35.1-43.9 [facility] Glomerular filtration rate ( GFR) estimation/1.73 sq m using serum, plasma, or whole bOrdered By: Scotty Hendrix on 06-30-2024 GFR/1.73 sq M.predicted among non-blacks MDRD (S/P/Bld) [Vol rate/Area] 94 mL/min/{1.73_m2} >60 [facility] Comment on above: mL/min/1.73m2 CKD-EP I Creatinine Equation (2020) Hematocrit Auto (Bld) [Volum e fraction]Ordered By: Scotty Hendrix on 06-30-2024 Hematocrit (Bld) [Volume fraction] 46.0 % 40-54 [facility] Hemoglobin measurementOrdere d By: Scotty Hendrix on 06-30-2024 Hemoglobin (Bld) [Mass/Vol] 15.2 g/dL 13.0-16.5 [facility] Immature granulocytes/100 WB C Auto (Bld)Ordered By: Scotty Hendrix on 06-30-2024 Immature granulocytes/100 WBC (Bld) 0.300 % 0.0-0.9 [facility] Comment on above: IG% - Immature Granu locytes (promyelocytes, myelocytes and metamyelocytes) > 1% indicates that a LEFT SHIFT is Present. LDL calc ser/plasOrdered By: Scotty Hendrix on 06-30-2024 Cholesterol in LDL [Mass/Vol] 143 mg/dL [facility] Comment on above: Veeiiekeyw=291-646 m g/dL & Higher Tdrm=009 mg/dL or greater Laboratory - Chemistry and C hemistry - challengeOrdered By: Scotty Hendrix on 06-30-2024 AST [Catalytic activity/Vol] 16 U/L <38 [facility] Lipid Profileon 06-30-2024 CHOL:HDL 3.96 Normal [facility] Comment on above: Order Comment: Order Date: 06/30/24Order Info: [id number] - CMPOrder Info: [id number] - LIPIDOrder Info: [id number] - TSHOrder Info: [id number] - PSADComments: cc copy to Proa?o Performed By: #### L 100.0100, L500.4100, L500.4050, L501.9940, L501.9520 ####[facility] [address] [place], [address] Cholesterol [Mass/Vol] 218 mg/dL High <=200 [facility] Comment on above: Order Comment: Order Date: 06/30/24Order Info: [id number] - CMPOrder Info: [id number] - LIPIDOrder Info: [id number] - TSHOrder Info: [id number] - PSADComments: cc copy to Proa?o Result Comment: Chol esterol level, Desirable <200 mg/dL Borderline high cholesterol 200-239 mg/dL High cholesterol >=240 mg/dL Recommendations of the NCEP Adult Treatment Panel for the following risk-cutoff thresholds for the [place] population. Performed By: #### L 100.0100, L500.4100, L500.4050, L501.9940, L501.9520 ####[facility] [address] [place], [address] Cholesterol in HDL [Mass/Vol] 55 mg/dL Normal [facility] Comment on above: Order Comment: Order Date: 06/30/24Order Info: 07- - CMPOrder Info: [id number] - LIPIDOrder Info: 6-3 - TSHOrder Info: 83-1 - PSADComments: cc copy to Proa?o Result Comment: Ivis onal Cholesterol Education Program (NCEP) guidelines: <40 mg/dL: Low HDL-cholesterol (major risk factor for CHD) >= 60 mg/dL: High HDL-cholesterol (negative risk factor for CHD) HDL-cholesterol is affected by a number of factors, e.g. smoking, exercise, hormones, sex and age. Performed By: #### L 100.0100, L500.4100, L500.4050, L501.9940, L501.9520 ####[facility] [address] [place], [address] Cholesterol in LDL [Mass/Vol] 143 mg/dL Normal [facility] Comment on above: Order Comment: Order Date: 06/30/24Order Info: [id number] - CMPOrder Info: [id number] - LIPIDOrder Info: 3 - TSHOrder Info: 83-1 - PSADComments: cc copy to Proa?o Result Comment: Bord xeuifq=106-414 mg/dL Higher Gqkd=388 mg/dL or greater Performed By: #### L 100.0100, L500.4100, L500.4050, L501.9940, L501.9520 ####[facility] [address] [place], [address] Cholesterol in VLDL [Mass/Vol] 20 mg/dL Normal 5-40 [facility] Comment on above: Order Comment: Order Date: 06/30/24Order Info: [id number]- - CMPOrder Info: [id number] - LIPIDOrder Info: 6-3 - TSHOrder Info: 83-1 - PSADComments: cc copy to Proa?o Performed By: #### L 100.0100, L500.4100, L500.4050, L501.9940, L501.9520 ####[facility] [address] [place], [place], [id number] Triglyceride [Mass/Vol] 98 mg/dL Normal [facility] Comment on above: Order Comment: Order Date: 06/30/24Order Info: [id number] - CMPOrder Info: [id number] - LIPIDOrder Info: [id number] - TSHOrder Info: [id number] - PSADComments: cc copy to Proa?o Result Comment: The drugs N-Acetylcysteine and Metamizole may falsely depress this assay. Normal range: <150 mg/dL Borderline High: 150-199 mg/dL High: 200-499 mg/dL Very High: >500 mg/dL Performed By: #### L 100.0100, L500.4100, L500.4050, L501.9940, L501.9520 ####[facility] [address] [place], [place], [id number] MCV (mean corpuscular volume ) determinationOrdered By: Scotty Hendrix on 06-30-2024 MCV (RBC) [Entitic vol] 83.2 fL 80-94 [facility] Mean corpuscular hemoglobin (MCH) determinationOrdered By: Scotty Hendrix on 06-30-2024 MCH (RBC) [Entitic mass] 27.5 pg 27.0-32.0 [facility] Mean corpuscular hemoglobin concentration (MCHC) determinationOrdered By: Scotty Hendrix on 06-30-2024 MCHC (RBC) [Mass/Vol] 33.0 g/dL 32-36 [facility] Mean platelet volume determi nationOrdered By: Scotty Hendrix on 06-30-2024 Platelet mean volume (Bld) [Entitic vol] 9.9 fL 6.2-12.0 [facility] Microalb:Creat Ratio,Random URon 06-30-2024 Creatinine [Mass/Vol] 288.00 mg/dL High 39.00-259.00 [facility] Comment on above: Order Comment: Order Date: 06/30/24 Order Info: [id number] - MIALB Performed By: #### L 502.0250 #### [facility] [address] [place], [address] MALB:CREAT UNABLE TO CALCULATE Normal [facility] Comment on above: Order Comment: Order Date: 06/30/24 Order Info: [id number] - MIALB Performed By: #### L 502.0250 #### [facility] [address] [place], [address] MICROALBUMIN,UR < 12.0 Normal NO RANGE EST. [facility] Comment on above: Order Comment: Order Date: 06/30/24 Order Info: [id number] - MIALB Performed By: #### L 502.0250 #### [facility] [address] [place], [address] Microalbumin/creat ratio urO rdered By: Scotty Hendrix on 06-30-2024 Urine microalbumin/creatinine ratio measurement UNABLE TO CALCULATE mg/g CRE [facility] Monocyte percentageOrdered B y: Scotty Hendrix on 06-30-2024 Monocytes/100 WBC (Bld) 9.8 % 0-10 [facility] Neutrophil percentageOrdered By: Scotty Hendrix on 06-30-2024 Neutrophils/100 WBC (Bld) 51.3 % 47-70 [facility] Nucleated red blood cell per centageOrdered By: Scotty Hendrix on 06-30-2024 Nucleated RBC/100 WBC (Bld) [Ratio] 0 % 0-5 [facility] PSA,Total- Diagnosticon - PSA, DIAGNOSTIC 4.87 ng/mL High 0.00-4.00 [facility] Comment on above: Order Comment: Order Date: 06/30/24Order Info: [id number] - CMPOrder Info: [id number] - LIPIDOrder Info: [id number] - TSHOrder Info: [id number] - PSADComments: cc copy to Proa?o Result Comment: This test was performed using the [employer] tPSA method. Measured values of a patient??sample can vary depending on the testing procedure used. PSA values determined on patient samples by different testing procedures cannot be used interchangeably. If there is a change in PSA assays while monitoring therapy, sequential testing should be performed to confirm baseline values. Performed By: #### L 100.0100, L500.4100, L500.4050, L501.9940, L501.9520 ####[facility] [id number] [place], [address] Platelet countOrdered By: Javid Hendrix on 06-30-2024 Platelets (Bld) [#/Vol] 247 10*3/uL 150-450 [facility] Potassium measurement (mass/ volume)Ordered By: Scotty Hendrix on 06-30-2024 Potassium (Unsp spec) [Mass/Vol] 4.1 mmol/L 3.3-5.1 [facility] RBC Auto (Bld) [#/Vol]Ordere d By: Scotty Hendrix on 06-30-2024 RBC (Bld) [#/Vol] 5.53 10*6/uL 4.6-6.2 [facility] Random urine creatinine silvio urement (mass/volume)Ordered By: Scotty Hendrix on 06-30-2024 Creatinine Unsp time (U) [Mass/Vol] 288.00 mg/dL High 39.00-259.00 [facility] Screening total cholesterol/ high density lipoprotein (HDL) cholesterol ratioOrdered By: Scotty Hendrix on 06-30-2024 Cholesterol.total/Choles terol in HDL [Mass ratio] 3.96 {ratio} [facility] Serum creatinine measurement (mass/volume)Ordered By: Scotty Hendrix on 06-30-2024 Creatinine [Mass/Vol] 0.87 mg/dL 0.70-1.20 [facility] Serum globulin measurementOr dered By: Scotty Hendrix on 06-30-2024 Globulin (S) [Mass/Vol] 2.7 g/dL 2.2-4.2 [facility] Serum glucose measurement (m ass/volume)Ordered By: Scotty Hendrix on 06-30-2024 Glucose [Mass/Vol] 99 mg/dL 70-99 [facility] Serum or plasma alanine chilel otransferase (ALT) measurementOrdered By: Scotty Hendrix on 06-30-2024 ALT [Catalytic activity/Vol] 12 U/L <47 [facility] Serum or plasma albumin silvio urement (mass/volume)Ordered By: Scotty Hendrix on 06-30-2024 Albumin [Mass/Vol] 3.8 g/dL 3.4-4.8 [facility] Serum or plasma albumin/glob ulin mass ratioOrdered By: Scotty Hendrix on 06-30-2024 Albumin/Globulin [Mass ratio] 1.4 {ratio} 0.9-2.4 [facility] Serum or plasma alkaline shazia sphatase measurementOrdered By: Scotty Hendrix on 06-30-2024 ALP [Catalytic activity/Vol] 96 U/L 40-129 [facility] Serum or plasma calcium silvio urement (mass/volume)Ordered By: Scotty Hendrix on 06-30-2024 Calcium [Mass/Vol] 9.0 mg/dL 7.6-11.0 [facility] Serum or plasma cholesterol in HDL measurement (mass/volume)Ordered By: Scotty Hendrix on 06-30-2024 Cholesterol in HDL [Mass/Vol] 55 mg/dL >40 [facility] Comment on above: National Cholesterol Education Program (NCEP) guidelines:<40 mg/dL: Low HDL-cholesterol (major risk factor for CHD)>= 60 mg/dL: High HDL-cholesterol (negative risk factor for CHD)HDL-cholesterol is affected by a number of factors, e.g. smoking, exercise, hormones, sex and age. Serum or plasma cholesterol measurement (mass/volume)Ordered By: Scotty Hendrix on 06-30-2024 Cholesterol [Mass/Vol] 218 mg/dL High <201 [facility] Comment on above: Cholesterol level, D esirable <200 mg/dLBorderline high cholesterol 200-239 mg/dLHigh cholesterol >=240 mg/dLRecommendations of the NCEP Adult Treatment Panel for the following risk-cutoff thresholds for the [place] population. Serum or plasma urea nitroge n measurement (mass/volume)Ordered By: Scotty Hendrix on 06-30-2024 Urea nitrogen [Mass/Vol] 18 mg/dL 4-19 [facility] Sodium levelOrdered By: Scotty Hendrix on 06-30-2024 Sodium [Moles/Vol] 138 mmol/L 133-145 [facility] TSH DL <= 0.005 mIU/L QnOrde red By: Scotty Hendrix on 06-30-2024 TSH Qn 1.630 uIU/mL 0.300-4.200 [facility] Thyroid Stim Hormone (TSH)on 06-30-2024 TSH 1.630 uIU/mL Normal 0.300-4.200 [facility] Comment on above: Order Comment: Order Date: 06/30/24Order Info: [id number] - CMPOrder Info: [id number] - LIPIDOrder Info: [id number] - TSHOrder Info: [id number] - PSADComments: cc copy to Proa?o Performed By: #### L 100.0100, L500.4100, L500.4050, L501.9940, L501.9520 ####[facility] [id number] [place], [place], [address] Total proteinOrdered By: Melissa Hendrix on 06-30-2024 Protein [Mass/Vol] 6.5 g/dL 5.9-8.4 [facility] Triglycerides measurementOrd ered By: Scotty Hendrix on 06-30-2024 Triglyceride [Mass/Vol] 98 mg/dL <199 [facility] Comment on above: The drugs N-Acetylcy steine and Metamizole may falsely depress this assay. Normal range: <150 mg/dLBorderline High: 150-199 mg/dLHigh: 200-499 mg/dLVery High: >500 mg/dL Urine albumin measurement [facility] detection limit of 20 mg/L or less (mass/volume)Ordered By: Scotty Hendrix on 06-30-2024 Albumin DL <= 20 mg/L (U) [Mass/Vol] < 12.0 mg/L NO RANGE EST. [facility] White blood cell (WBC) count Ordered By: Scotty Hendrix on 06-30-2024 WBC (Bld) [#/Vol] 6.9 10*3/uL 4.4-11.0 [facility] Surgery Specimen Level Candace 04-03-2025 Surgery Specimen Level IV Patient Age/Sex Location Account Attending Physician ARIAS WAGNER 69/M LABSPEC [id number] Dr. Shiv Ray MD Specimen: [id number] Received: 06/10/24 Status: LAURA Bah Num: [id number] Spec Type: PROST BX Subm Dr: Dr. Shiv Ray MD HEADER OPERATION: Prostate biopsy PRE-OP DIAGNOSIS: Elevated PSA TISSUE SUBMITTED: A- Prostate biopsy MICROSCOPIC DIAGNOSIS A. Prostate, left mid, core biopsy: - Adenocarcinoma [place]isenring 3+3=6, 4/4 cores, involving 50% of the tissue. MICROSCOPIC DESCRIPTION Slides are reviewed. GROSS DESCRIPTION A. Received in formalin in a container labeled with the patient's name, date of , and left mid are 4 white-ellis, wispy core biopsies of soft tissue ranging from 1.0 x 0.1 cm to 1.6 x 0.1 cm. Submitted in toto in A1-2 (2 cores per cassette). [facility] 06-10-2024 CPT: 58125 Patient Age/Sex Location Account Attending Physician ARIAS WAGNER 69/M LABSPEC [id number] Dr. Shiv Ray MD Signed (signature on file) Dr. Evelyn Scott MD 06/15/24 1642 Normal [facility] Comment on above: Performed By: #### P SUIV ####[facility] [id number] [place], [address] Magnetic resonance imaging r eportOrdered By: Hebert Shukla on 05-20-2024 Study report [facility] Imaging Services [address] [place] [address] Pelvis W/WO Contrast MR#: [id number] Acct: [id number] Name: ARIAS WAGNER Rep #: [id number] : 1955 M 69 From: Poppy Shukla MD PCP: Dr. Scotty Hendrix MD Status: REG CLI Study:Pelvis W/WO Contrast Date of Exam: 05/13/24 Exam# [id number] Ordering Dr: Magdalena Ray MD ADDENDUM by Dr. Hebert Shukla MD on 05/20/24 at 1042 Note that contrast dose was documented as 15 mL Clariscan in DICOM metadata associated with the images, and 23 mL Clariscan on included paperwork. Per technologist report, the correct contrast dose is 23 mLClariscan. END OF ADDENDUM Reading Location: [id number] 05/20/24 1042 Date cc: Dr. Scotty Hendrix MD; Dr. Shiv Ray MD ~* Signed PROCEDURE: PELVIS W/WO CONTRAST REASON FOR EXAM: ELEVATED PSA 4.96 TECHNIQUE: Multisequence multiplanar MRI pelvis was performed with and without IV contrast. CONTRAST: 15 mL Clariscan COMPARISON: None FINDINGS: Note dynamic postcontrast imaging was not performed; an alternative PI-RADS algorithm was therefore utilized. Exam additionally limited by artifact related to right hip arthroplasty, the portions of the rightpelvis partially obscured on some sequences. Variable overall mild motion limitation. Prostate size: 5.4 x 4.1 x 3.9 cm, estimated volume 45 mL (PSA density 0.11 based on provided PSA 4.96). Transition zone: PI-RADS 2 findings. Additional lesions as below: *Lesion 1: Left anterior transition zone apex probably involving the overlying left anterior peripheral zone apex, 2.2 cm (series 9, image 19). *T2 score: 5. *DWI score: 3. *DCE: N/a. *Overall PI-RADS: Borderline; felt the best considered PI-RADS 4. *Extracapsular extension: No gross extracapsular extension, however note that there is capsular abutment greater than 1 cm which can be associated with microscopic extracapsular extension. Peripheral Zone: As above, otherwise no clear high-risk lesion identified. Background changes of likely prostatitis. Probable partially extruded transition zone nodule in the left posterior peripheral zone midgland to apex. Neurovascular bundles: Unremarkable. Seminal vesicles: Unremarkable. Bladder: Underdistended and suboptimally evaluated. Mild wall thickening and trabeculation suggesting chronic bladder outlet obstruction. Lymph nodes: Distal external iliac nodes up to 9 mm short axis on the left and 7mm short axis on the right. Bones: Artifact related to right hip arthroplasty as above. No frankly destructive or suspicious bony lesion identified allowing for limitations. Other: Trace nonspecific pelvic free fluid. Small fat containing bilateral inguinal hernias. Trace left hip joint effusion. Suspect trace hydroceles, partially imaged. MRI/Pelvis W/WO Contrast IMPRESSION: 1. 2.2 cm lesion in the left anterior transition zone apex probably involving the overlying left anterior peripheral zone is borderline but felt the best considered PI-RADS 4. 2. No gross extracapsular extension, however note that there is capsular abutment greater than 1 cm which can be associated with microscopic extracapsular extension. 3. Mild distal left external iliac lymphadenopathy by PI-RADS criteria, nonspecific in the absence of known prostatic malignancy and potentially reactive. If prostatic neoplasm is found to be present, this would at a minimum warrant close follow-up. Prominent but technically nonenlarged distal right external iliac node also present. 4. Trace nonspecific pelvic free fluid. 5. Additional description as above. Reading Location: [id number] CC: Dr. Scotty Hendrix MD; Dr. Shiv Ray MD ~ Mottler Operator: Signed [facility] Pelvis W/WO Contraston 05-13 Pelvis W/WO Contrast [facility] Services [address] [place] [address] Pelvis W/WO Contrast MR#: [id number] Acct: [id number] Name: ARIAS WAGNER Rep #: [id number] : 1955 M 69 From: Hebert Shukla MD PCP: Dr. Scotty Hendrix MD Status: REG CLI Study: Pelvis W/WO Contrast Date of Exam: 05/13/24 Exam# [id number] Ordering Dr: Shiv Ray MD ADDENDUM by Dr. Hebert Shukla MD on 05/20/24 at 1042 Note that contrast dose was documented as 15 mL Clariscan in DICOM metadata associated with the images, and 23 mL Clariscan on included paperwork. Per technologist report, the correct contrast dose is 23 mL Clariscan. END OF ADDENDUM Reading Location: [facility] 05/20/24 1042 Date cc: Dr. Scotty Hendrix MD; Dr. Shiv Ray MD * Signed PROCEDURE: PELVIS W/WO CONTRAST REASON FOR EXAM: ELEVATED PSA 4.96 TECHNIQUE: Multisequence multiplanar MRI pelvis was performed with and without IV contrast. CONTRAST: 15 mL Clariscan COMPARISON: None FINDINGS: Note dynamic postcontrast imaging was not performed; an alternative PI-RADS algorithm was therefore utilized. Exam additionally limited by artifact related to right hip arthroplasty, the portions of the right pelvis partially obscured on some sequences. Variable overall mild motion limitation. Prostate size: 5.4 x 4.1 x 3.9 cm, estimated volume 45 mL (PSA density 0.11 based on provided PSA 4.96). Transition zone: PI-RADS 2 findings. Additional lesions as below: *Lesion 1: Left anterior transition zone apex probably involving the overlying left anterior peripheral zone apex, 2.2 cm (series 9, image 19). *T2 score: 5. *DWI score: 3. *DCE: N/a. *Overall PI-RADS: Borderline; felt the best considered PI-RADS 4. *Extracapsular extension: No gross extracapsular extension, however note that there is capsular abutment greater than 1 cm which can be associated with microscopic extracapsular extension. Peripheral Zone: As above, otherwise no clear high-risk lesion identified. Background changes of likely prostatitis. Probable partially extruded transition zone nodule in the left posterior peripheral zone midgland to apex. Neurovascular bundles: Unremarkable. Seminal vesicles: Unremarkable. Bladder: Underdistended and suboptimally evaluated. Mild wall thickening and trabeculation suggesting chronic bladder outlet obstruction. Lymph nodes: Distal external iliac nodes up to 9 mm short axis on the left and 7 mm short axis on the right. Bones: Artifact related to right hip arthroplasty as above. No frankly destructive or suspicious bony lesion identified allowing for limitations. Other: Trace nonspecific pelvic free fluid. Small fat containing bilateral inguinal hernias. Trace left hip joint effusion. Suspect trace hydroceles, partially imaged. MRI/Pelvis W/WO Contrast IMPRESSION: 1. 2.2 cm lesion in the left anterior transition zone apex probably involving the overlying left anterior peripheral zone is borderline but felt the best considered PI-RADS 4. 2. No gross extracapsular extension, however note that there is capsular abutment greater than 1 cm which can be associated with microscopic extracapsular extension. 3. Mild distal left external iliac lymphadenopathy by PI-RADS criteria, nonspecific in the absence of known prostatic malignancy and potentially reactive. If prostatic neoplasm is found to be present, this would at a minimum warrant close follow-up. Prominent but technically nonenlarged distal right external iliac node also present. 4. Trace nonspecific pelvic free fluid. 5. Additional description as above. Reading Location: [facility] CC: Dr. Scotty Hendrix MD; Dr. Shiv Ray MD Mottler Operator: Signed Normal [facility] PT D/C Summary (1)on 024 PT D/C Summary (1) [facility] [address] [place] [address] [address] [place] [address] / REHABILITATION SERVICES DISCHARGE SUMMARY MR#: [id number] Acct: [id number] Name: ARIAS WAGNER Rep #: [id number] : 1955 69 From: Teo Obregon PT, ATC Referring Dr.: Dr. Adam Goldstein MD Status: REG RCR Insurance: MEDICARE PART A B ANTHEM Discharge Summary D/C summary: It has been my pleasure to treat ARIAS WAGNER referred by Dr. Adam Goldstein MD, with the diagnosis of Unsteady gait for a total of 27 visit(s). Discharge Date: Please see the following information for a summary of their discharge status. Subjective Subjective: I am ready to continue on my own. I have a copy of all the machines and weights. Overall Improvement % Improvement: 70 Objective Objective/Function: B LE MMT 5/5 throughout Pt able to perform 13 sit to stands in 30 sec FGA= 25/30 Pt is I with HEP Goals Goal 1:: Increase B LE strength x 1 grade to aid with stair negotiation Goal Progress: Goal Met Goal 2:: Pt will perform 10 sit to stands in 30 seconds to aid with community mobility Goal Progress: Goal Met Goal 3:: Increase FGA x 5 points to aid with preventing future falls Goal Progress: Goal Met Goal 4:: I with HEP Goal Progress: Goal Met Plan Plan: Discharge to HEP D/C Information d/c sentence: If there are questions or concerns regarding this patient's physical therapy, please feel free to call me at [phone]. Thank you for the referral of this patient. Sincerely, Teo Obregon, PT, ATC Balance/Gait/Functio nal tests Balance/Special Test Scores Functional Gait Assessment Score: 25 % Disability: 16.6700 Oswestry Low Back Score: 16 Lower Extremity Functional Score: 41 Improvement % Improvement: 70 03/03/24 3487 CC: Dr. Scotty Hendrix MD; Dr. Adam Goldstein MD [facility] Signed Normal [facility] Basophil percentageOrdered B y: Scotty Hendrix on 06-17-2023 Bilirubin [Mass/Vol] 0.70 mg/dL 0.20-1.00 [facility] Comment on above: For patients on eltr ombopag therapy, use of Dimension Arboles TBIL is not recommended. Chloride [Moles/Vol] 110 mmol/L 98-107 [facility] Glucose [Mass/Vol] 92 mg/dL 74-106 [facility] Potassium [Moles/Vol] 4.0 mmol/L 3.5-5.1 [facility] Protein [Mass/Vol] 6.6 g/dL 6.4-8.2 [facility] Sodium [Moles/Vol] 139 mmol/L 136-145 [facility] - Chemistry and C hemistry - challengeOrdered By: Scotty Hendrix on 06-17-2023 Albumin/Globulin [Mass ratio] 1.1 {ratio} 0.9-2.4 [facility] ALP [Catalytic activity/Vol] 102 U/L 45-117 [facility] ALT [Catalytic activity/Vol] 21 U/L 16-61 [facility] CO2 [Moles/Vol] 25.0 mmol/L 21.0-32.0 [facility] Globulin (S) [Mass/Vol] 3.2 g/dL 2.2-4.2 [facility] Urea nitrogen/Creatinine [Mass ratio] 19.4 mg/mg 10-20 [facility] No Panel InformationOrdered By: Scotty Hendrix on 06-17-2023 Estimated GFR (MDRD) Amer 104 mL/min >60 [facility] Comment on above: GFR Calc Estimated GFR (MDRD) Non-Af Amer 86 mL/min >60 [facility] Comment on above: Non- GFR Calc Prostate Specific Antigen Screen 4.64 ng/mL 0.00-4.00 [facility] Comment on above: This test was perfor med using the TPSA assay method for the[employer] chemistry system. Values obtained with differentassay methods cannot be used interchangably.When changing PSA assays in the course of monitoring apatient, additional sequential testing should be carriedout to confirm baseline values. Serum or plasma calcium silvio urement (mass/volume)Ordered By: Scotty Hendrix on 06-17-2023 Calcium [Mass/Vol] 8.8 mg/dL 8.5-10.1 [facility] Serum or plasma creatinine m easurement (mass/volume)Ordered By: Scotty Hendrix on 06-17-2023 Creatinine [Mass/Vol] 0.93 mg/dL 0.70-1.30 [facility] Comment on above: The validity of the calculated GFR & GFRAA in patients over 70 years has not been determined. Clinical correlation is essential. Serum or plasma urea nitroge n measurement (mass/volume)Ordered By: Scotty Hendrix on 06-17-2023 Urea nitrogen [Mass/Vol] 18 mg/dL 7-18 [facility] Thin prep Papanicolaou smear with manual screeningOrdered By: Scotty Hendrix on 06-17-2023 Thin prep Papanicolaou smear with manual screening 3.4 g/dL 3.2-5.0 [facility] Thin prep Papanicolaou smear with manual screening 15 U/L 15-37 [facility] Thin prep Papanicolaou smear with manual screening 4 5-15 [facility] Absolute lymphocyte countOrd ered By: Scotty Hendrix on 12-25-2022 Lymphocytes Auto (Unsp spec) [#/Vol] 2.45 10*3/uL 0.83-4.51 [facility] Basophil percentageOrdered B y: Scotty Hendrix on 12-25-2022 Basophils/100 WBC (Bld) 1.1 % 0-1 [facility] Bilirubin [Mass/Vol] 0.50 mg/dL 0.20-1.00 [facility] Comment on above: For patients on eltr ombopag therapy, use of Dimension Arboles TBIL is not recommended. Chloride [Moles/Vol] 109 mmol/L 98-107 [facility] Cholesterol [Mass/Vol] 188 mg/dL <200 [facility] Comment on above: <200 mg/dL Desirable 200-240 mg/dL Borderline >240 mg/dL High Risk Eosinophils/100 WBC (Bld) 2.9 % 0-5 [facility] Glucose [Mass/Vol] 101 mg/dL 74-106 [facility] Comment on above: Fasting Glucose resu lt from 100 to 125 mg/dL suggests IMPAIRED HOMEOSTASIS per A.D.A. criteria. Neutrophils (Bld) [#/Vol] 4.2 10*3/uL 2.0-7.7 [facility] Neutrophils/100 WBC (Bld) 55.0 % 47-70 [facility] Potassium [Moles/Vol] 4.7 mmol/L 3.5-5.1 [facility] Protein [Mass/Vol] 6.9 g/dL 6.4-8.2 [facility] Sodium [Moles/Vol] 140 mmol/L 136-145 [facility] Triglyceride [Mass/Vol] 112 mg/dL <199 [facility] Comment on above: The drugs N-Acetylcy steine and Metamizole may falsely depress this assay.Serum Triglycerides Reference Interval Normal <150 mg/dL Borderline high 150 - 199 mg/dL High 200 - 499 mg/dL Very High > or = 500 mg/dL WBC (Bld) [#/Vol] 7.6 10*3/uL 4.4-11.0 [facility] Blood erythrocytes count (nu mber/volume)Ordered By: Scotty Hendrix on 12-25-2022 RBC (Bld) [#/Vol] 5.57 10*6/uL 4.6-6.2 [facility] Blood hemoglobin measurement (mass/volume)Ordered By: Scotty Hendrix on 12-25-2022 Hemoglobin (Bld) [Mass/Vol] 15.0 g/dL 13.0-16.5 [facility] Blood lymphocytes/100 leukoc ytesOrdered By: Scotty Hendrix on 12-25-2022 Lymphocytes/100 WBC (Bld) 32.2 % 19-41 [facility] Blood monocytes/100 leukocyt esOrdered By: Scotty Hendrix on 12-25-2022 Monocytes/100 WBC (Bld) 8.4 % 0-10 [facility] Blood platelet mean volumeOr dered By: cSotty Hendrix on 12-25-2022 Platelet mean volume (Bld) [Entitic vol] 10.5 fL 6.2-12.0 [facility] Determination of erythrocyte mean corpuscular volume (MCV)Ordered By: Scotty Hendrix on 12-25-2022 MCV (RBC) [Entitic vol] 85.8 fL 80-94 [facility] Hematocrit Auto (Bld) [Volum e fraction]Ordered By: Scotty Hendrix on 12-25-2022 Hematocrit (Bld) [Volume fraction] 47.8 % 40-54 [facility] - Chemistry and C hemistry - challengeOrdered By: Scotty Hendrix on 12-25-2022 ALP [Catalytic activity/Vol] 108 U/L 45-117 [facility] ALT [Catalytic activity/Vol] 24 U/L 16-61 [facility] CO2 [Moles/Vol] 24.0 mmol/L 21.0-32.0 [facility] Globulin (S) [Mass/Vol] 3.8 g/dL 2.2-4.2 [facility] Urea nitrogen/Creatinine [Mass ratio] 14.0 mg/mg 10-20 [facility] - Hematology and Cell countsOrdered By: Sctoty Hendrix on 12-25-2022 Erythrocyte distribution width (RBC) [Entitic vol] 43.8 fL 35.1-43.9 [facility] Erythrocyte distribution width (RBC) [Ratio] 14.0 % 11.6-14.6 [facility] Immature granulocytes/100 WBC (Bld) 0.400 % 0.0-0.9 [facility] Comment on above: IG% - Immature Granu locytes (promyelocytes, myelocytes and metamyelocytes) > 1% indicates that a LEFT SHIFT is Present. MCH (RBC) [Entitic mass] 26.9 pg 27.0-32.0 [facility] Nucleated RBC/100 WBC (Bld) [Ratio] 0 % 0-5 [facility] MCHC Auto (RBC) [Mass/Vol]Or dered By: Scotty Hendrix on 12-25-2022 MCHC (RBC) [Mass/Vol] 31.4 g/dL 32-36 [facility] No Panel InformationOrdered By: Scotty Hendrix on 12-25-2022 Estimated GFR (MDRD) Amer 114 mL/min >60 [facility] Comment on above: GFR Calc Estimated GFR (MDRD) Non-Af Amer 94 mL/min >60 [facility] Comment on above: Non- GFR Calc Prostate Specific Antigen Screen 4.89 ng/mL 0.00-4.00 [facility] Comment on above: This test was perfor med using the TPSA assay method for the[employer] chemistry system. Values obtained with differentassay methods cannot be used interchangably.When changing PSA assays in the course of monitoring apatient, additional sequential testing should be carriedout to confirm baseline values. Thyroid Stimulating Hormone (TSH) 2.03 uIU/mL 0.358-3.74 [facility] Urine Microalbumin/Creatinine Ratio TNP [facility] Comment on above: Test not performed Platelets bldOrdered By: Melissa Hendrix on 12-25-2022 Platelets (Bld) [#/Vol] 227 10*3/uL 150-450 [facility] Serum or plasma albumin silvio urement (mass/volume)Ordered By: Scotty Hendrix on 12-25-2022 Albumin [Mass/Vol] 3.1 g/dL 3.2-5.0 [facility] Serum or plasma albumin/glob ulin mass ratioOrdered By: Scotty Hendrix on 12-25-2022 Albumin/Globulin [Mass ratio] 0.8 {ratio} 0.9-2.4 [facility] Serum or plasma calcium silvio urement (mass/volume)Ordered By: Scotty Hendrix on 12-25-2022 Calcium [Mass/Vol] 8.8 mg/dL 8.5-10.1 [facility] Serum or plasma cholesterol in HDL measurement (mass/volume)Ordered By: Scotty Hendrix on 12-25-2022 Cholesterol in HDL [Mass/Vol] 52 mg/dL >40 [facility] Comment on above: The drugs N-Acetylcy steine and Metamizole may falsely depress this assay. Reference Range HDL <40 mg/dL Low HDL Cholesterol HDL >or= 60 mg/dL High HDL Cholesterol Serum or plasma cholesterol in VLDL measurement (mass/volume)Ordered By: Scotty Hendrix on 12-25-2022 Cholesterol in VLDL [Mass/Vol] 22 mg/dL 5-40 [facility] Serum or plasma creatinine m easurement (mass/volume)Ordered By: Scotty Hendrix on 12-25-2022 Creatinine [Mass/Vol] 0.86 mg/dL 0.70-1.30 [facility] Comment on above: The validity of the calculated GFR & GFRAA in patients over 70 years has not been determined. Clinical correlation is essential. Serum or plasma low density lipoprotein (LDL) cholesterol measurement (mass/volume)Ordered By: Scotty Hendrix on 12-25-2022 Cholesterol in LDL [Mass/Vol] 114 mg/dL 0-130 [facility] Serum or plasma urea nitroge n measurement (mass/volume)Ordered By: Scotty Hendrix on 12-25-2022 Urea nitrogen [Mass/Vol] 12 mg/dL 7-18 [facility] Thin prep Papanicolaou smear with manual screeningOrdered By: Scotty Hendrix on 12-25-2022 Thin prep Papanicolaou smear with manual screening 10 U/L 15-37 [facility] Thin prep Papanicolaou smear with manual screening 7 5-15 [facility] Thin prep Papanicolaou smear with manual screening < 5.0 mg/L NO RANGE EST. [facility] Urine creatinine measurement (mass/volume)Ordered By: Scotty Hendrix on 12-25-2022 Creatinine (U) [Mass/Vol] 34.00 mg/dL NO RANGE EST. [facility] Whole blood hemoglobin A1c/t otal hemoglobin ratio (mass fraction)Ordered By: Scotty Hendrix on 12-25-2022 HbA1c (Bld) [Mass fraction] 5.5 % 3.8-5.6 [facility] Comment on above: Normal < 5.7 % Predi abetic 5.7 - 6.4 % Diabetic >or= 6.5 % Please note range changes. Basophil percentageon 2021 Chloride [Moles/Vol] 106 mmol/L 98-107 [facility] Work Phone: Glucose [Mass/Vol] 113 mg/dL 74-106 [facility] Work Phone: Comment on above: Fasting Glucose resu lt from 100 to 125 mg/dL suggests IMPAIRED HOMEOSTASIS per A.D.A. criteria. Potassium [Moles/Vol] 4.3 mmol/L 3.5-5.1 [facility] Work Phone: Sodium [Moles/Vol] 140 mmol/L 136-145 [facility] Work Phone: WBC (Bld) [#/Vol] 8.5 10*3/uL 4.4-11.0 [facility] Work Phone: Blood erythrocytes count (nu mber/volume)on 02-18-2022 RBC (Bld) [#/Vol] 5.81 10*6/uL 4.6-6.2 [facility] Work Phone: Blood hemoglobin measurement (mass/volume)on 02-18-2022 Hemoglobin (Bld) [Mass/Vol] 16.0 g/dL 13.0-16.5 [facility] Work Phone: Blood platelet mean volumeon 02-18-2022 Platelet mean volume (Bld) [Entitic vol] 10.2 fL 6.2-12.0 [facility] Work Phone: Determination of erythrocyte mean corpuscular volume (MCV)on 02-18-2022 MCV (RBC) [Entitic vol] 85.4 fL 80-94 [facility] Work Phone: Hematocrit Auto (Bld) [Volum e fraction]on 02-18-2022 Hematocrit (Bld) [Volume fraction] 49.6 % 40-54 [facility] Work Phone: Laboratory - Chemistry and C hemistry - challengeon 02-18-2022 CO2 [Moles/Vol] 31.0 mmol/L 21.0-32.0 [facility] Work Phone: Urea nitrogen/Creatinine [Mass ratio] 24.4 mg/mg 10-20 [facility] Work Phone: Laboratory - Hematology and Cell countson 02-18-2022 Erythrocyte distribution width (RBC) [Entitic vol] 43.9 fL 35.1-43.9 [facility] Work Phone: Erythrocyte distribution width (RBC) [Ratio] 14.1 % 11.6-14.6 [facility] Work Phone: MCH (RBC) [Entitic mass] 27.5 pg 27.0-32.0 [facility] Work Phone: MCHC Auto (RBC) [Mass/Vol]on 02-18-2022 MCHC (RBC) [Mass/Vol] 32.3 g/dL 32-36 [facility] Work Phone: No Panel Informationon 02-18 Estimated GFR (MDRD) Amer 108 mL/min >60 [facility] Work Phone: Comment on above: GFR Calc Estimated GFR (MDRD) Non-Af Amer 89 mL/min >60 [facility] Work Phone: Comment on above: Non- GFR Calc Platelets bldon 02-18-2022 Platelets (Bld) [#/Vol] 253 10*3/uL 150-450 [facility] Work Phone: Serum or plasma calcium silvio urement (mass/volume)on 02-18-2022 Calcium [Mass/Vol] 8.9 mg/dL 8.5-10.1 [facility] Work Phone: Serum or plasma creatinine m easurement (mass/volume)on 02-18-2022 Creatinine [Mass/Vol] 0.90 mg/dL 0.70-1.30 [facility] Work Phone: Comment on above: The validity of the calculated GFR & GFRAA in patients over 70 years has not been determined. Clinical correlation is essential. Serum or plasma urea nitroge n measurement (mass/volume)on 02-18-2022 Urea nitrogen [Mass/Vol] 22 mg/dL 7-18 [facility] Work Phone: Thin prep Papanicolaou smear with manual screeningon 02-18-2022 Thin prep Papanicolaou smear with manual screening 3 5-15 [facility] Work Phone: Basophil percentageon 2021 Chloride [Moles/Vol] 108 mmol/L 98-107 [facility] Work Phone: Cholesterol [Mass/Vol] 212 mg/dL <200 [facility] Work Phone: Comment on above: <200 mg/dL Desirable 200-240 mg/dL Borderline >240 mg/dL High Risk Glucose [Mass/Vol] 97 mg/dL 74-106 [facility] Work Phone: Potassium [Moles/Vol] 4.1 mmol/L 3.5-5.1 [facility] Work Phone: Comment on above: Slight Hemolysis, Re sult may be falsely increased. Sodium [Moles/Vol] 138 mmol/L 136-145 [facility] Work Phone: Triglyceride [Mass/Vol] 109 mg/dL <199 [facility] Work Phone: Comment on above: The drugs N-Acetylcy steine and Metamizole may falsely depress this assay.Serum Triglycerides Reference Interval Normal <150 mg/dL Borderline high 150 - 199 mg/dL High 200 - 499 mg/dL Very High > or = 500 mg/dL Laboratory - Chemistry and C hemistry - challengeon 08-16-2021 CO2 [Moles/Vol] 24.0 mmol/L 21.0-32.0 [facility] Work Phone: Urea nitrogen/Creatinine [Mass ratio] 18.9 mg/mg 10-20 [facility] Work Phone: No Panel Informationon 08-16 Estimated GFR (MDRD) Amer 102 mL/min >60 [facility] Work Phone: Comment on above: GFR Calc Estimated GFR (MDRD) Non-Af Amer 84 mL/min >60 [facility] Work Phone: Comment on above: Non- GFR Calc Prostate Specific Antigen Screen 3.72 ng/mL 0.00-4.00 [facility] Work Phone: Comment on above: This test was perfor med using the TPSA assay method for the[employer] chemistry system. Values obtained with differentassay methods cannot be used interchangably.When changing PSA assays in the course of monitoring apatient, additional sequential testing should be carriedout to confirm baseline values. Serum or plasma calcium silvio urement (mass/volume)on 08-16-2021 Calcium [Mass/Vol] 8.9 mg/dL 8.5-10.1 [facility] Work Phone: Serum or plasma cholesterol in HDL measurement (mass/volume)on 08-16-2021 Cholesterol in HDL [Mass/Vol] 59 mg/dL >40 [facility] Work Phone: Comment on above: The drugs N-Acetylcy steine and Metamizole may falsely depress this assay. Reference Range HDL <40 mg/dL Low HDL Cholesterol HDL >or= 60 mg/dL High HDL Cholesterol Serum or plasma cholesterol in VLDL measurement (mass/volume)on 08-16-2021 Cholesterol in VLDL [Mass/Vol] 22 mg/dL 5-40 [facility] Work Phone: Serum or plasma creatinine m easurement (mass/volume)on 08-16-2021 Creatinine [Mass/Vol] 0.95 mg/dL 0.70-1.30 [facility] Work Phone: Comment on above: The validity of the calculated GFR & GFRAA in patients over 70 years has not been determined. Clinical correlation is essential. Serum or plasma low density lipoprotein (LDL) cholesterol measurement (mass/volume)on 08-16-2021 Cholesterol in LDL [Mass/Vol] 131 mg/dL 0-130 [facility] Work Phone: Serum or plasma urea nitroge n measurement (mass/volume)on 08-16-2021 Urea nitrogen [Mass/Vol] 18 mg/dL 7-18 [facility] Work Phone: Thin prep Papanicolaou smear with manual screeningon 08-16-2021 Thin prep Papanicolaou smear with manual screening 6 5-15 [facility] Work Phone: PROGRESSon 03-13-2020 PROGRESS HNO ID: [id number] Author: Waleska MayerCt) SONAM Zarate Service: ? Author Type: Clinical Government Contracts Manager Type: Progress Notes Filed: 03/13/2020 9:04 AM Note Text: Radiology Service Progress Note PATIENT NAME: Arias Wagner DATE OF SERVICE: March 13, 2020 [...] SONAM Mcbride March 13, 2020 9:04 AM [facility] XR PELVIS 1V APon 03-13-2020 XR PELVIS [...] IMPRESSION: Intact appearing right total hip arthroplasty. Mottler Operator: PSCB Transcribe Date/Time: Mar 13 2020 9:06A Dictated by : MIKE RIOS DO This examination was interpreted and the report reviewed and electronically signed by: MIKE RIOS DO on Mar 13 2020 9:16AM EST [id number] CN [facility] Vital Signs Date Time Vital Sign Value Performing Clinician Facility 12-21-2024 08:47-0400 Body height 193.[address] Scotty Hendrix MD Work Phone: [facility] 12-21-2024 08:47-0400 Body mass index (BMI) [Ratio] 32.5 kg/m2 Dr. Scotty Hendrix MD Work Phone: [facility] 12-21-2024 08:47-0400 Body temperature 98 [degF] Dr. Scotty Hendrix MD Work Phone: [facility] 12-21-2024 08:47-0400 Body weight 121.[address] Scotty Hendrix MD Work Phone: [facility] 12-21-2024 08:47-0400 Diastolic blood pressure 84 mm[Hg] Dr. Scotty Hendrix MD Work Phone: [facility] 12-21-2024 08:47-0400 Heart rate 68 /min Dr. Scotty Hendrix MD Work Phone: [facility] 12-21-2024 08:47-0400 Respiratory rate 16 /min Dr. Scotty Hendrix MD Work Phone: [facility] 12-21-2024 08:47-0400 SaO2% (BldA) [Mass fraction] 98 % Dr. Scotty Hendrix MD Work Phone: [facility] 12-21-2024 08:47-0400 Systolic blood pressure 145 mm[Hg] Dr. Scotty Hendrix MD Work Phone: [facility] 10-03-2024 09:57-0400 Body height 191 cm Michelle Stanton MD Work Phone: [facility] 10-03-2024 09:57-0400 Body height 190.5 cm Michelle Stanton MD Work Phone: [facility] 10-03-2024 09:57-0400 Body mass index (BMI) [Ratio] 32.62 kg/m2 Michelle Stanton MD Work Phone: [facility] 10-03-2024 09:57-0400 Body weight 118 kg Michelle Stanton MD Work Phone: [facility] 10-03-2024 09:57-0400 Body weight 117.94 kg Michelle Stanton MD Work Phone: [facility] 10-03-2024 09:57-0400 Diastolic blood pressure 87 mm[Hg] Michelle Stanton MD Work Phone: [facility] 10-03-2024 09:57-0400 HGHTCHNVIS Michelle Stanton MD Work Phone: [facility] 10-03-2024 09:57-0400 Systolic blood pressure 131 mm[Hg] Michelle Stanton MD Work Phone: [facility] 10-03-2024 09:57-0400 VITALSDONE Michelle Stanton MD Work Phone: [facility] Encounters Encounter Date Encounter Type Care Provider Facility Start: 02-08-2025 ambulatory Juan Badmaribell Facilit y:[facility] Start: 01-12-2025 ambulatory Juan Joyce Facilit y:[facility] Start: 01-05-2025 End: 01-05-2025 [facility]ulatory [facility] Facility:[facility] Start: 12-21-2024 End: 12-21-[address] Juan Joyce MD -[facility] Work Phone: Start: 12-21-2024 End: 12-21-[address] Scotty Hendrix MD Work Phone: -[facility] Start: 10-10-2024 End: 10-10-[address] Scotty Hendrix MD Work Phone: -Laboratory Start: 10-10-2024 End: 10-10-2024 Patient encounter procedure Nithya Condon -Laboratory Work Phone: Start: 10-10-2024 End: 10-10-2024 ambulatory Scotty [place] Facility:[facility] Start: 10-03-2024 In-person encounter Michelle daniels MD Work Phone: [facility] Work Phone: Start: 10-03-2024 Visit out of hours Michelle saenz MD Work Phone: [employer] Work Phone: Start: 06-30-2024 End: 06-30-[address] Scotty Hendrix MD -Laboratory [facility] Start: 06-30-2024 End: 06-30-2024 ambulatory Scotty Hendrix Facility:[facility] Start: 06-09-2024 End: 06-09-[address] Scotty Hendrix MD Work Phone: [facility] Work Phone: Start: 06-09-2024 End: 06-09-[address] Shiv Ray MD -Laboratory, Specimen Work Phone: Start: 06-09-2024 End: 06-09-2024 ambulatory Scotty Hendrix Facility:[facility] Start: 05-13-2024 End: 05-13-[address] Scotty Hendrix MD Work Phone: [facility] Work Phone: Start: 05-13-2024 End: 05-13-[address] Shiv [facility] Work Phone: Start: 05-13-2024 End: 05-13-2024 ambulatory Shiv Ray Facility:[facility] Start: 03-03-2024 End: 03-03-2024 ambulatory Adam Goldstein Facility:[facility] Start: 03-03-2024 End: 03-03-[address] Adam Goldstein MD -Physical Therapy Work Phone: Start: 06-17-2023 End: 06-17-2023 ambulatory [facility] Work Phone: Start: 06-17-2023 End: 06-17-2023 [facility] Start: 12-25-2022 End: 12-25-2022 ambulatory [facility] Work Phone: Start: 12-25-2022 End: 12-25-2022 Patient encounter procedure [facility]-Laboratory, [facility] Start: 11-06-2022 Registered Recurring [facility]-Physical Therapy Work Phone: Start: 02-26-2022 Registered Recurring [facility] Start: 02-18-2022 End: 02-18-2022 ambulatory [facility] Work Phone: Start: 02-18-2022 End: 02-18-2022 Patient encounter procedure [facility]-Pulmonary Services/Neurology Start: 08-16-2021 End: 08-16-2021 Patient encounter procedure [facility]-Laboratory, [facility] Procedures Date Procedure Procedure Detail Performing Clinician Start: 10-10-2024 Assay of prostate sp ecific antigen total Dr. Scotty Hendrix MD Work Phone: Comment on above: This test was perfor med using the [employer] tPSA method. Measured values of a patient sample can vary depending on the testing procedure used. PSA values determined on patient samples by different testing procedures cannot be used interchangeably. If there is a change in PSA assays while monitoring therapy, sequential testing should be performed to confirm baseline values. Start: 10-10-2024 Prostate specific an tigen measurement Dr. Scotty Hendrix MD Work Phone: Comment on above: This test was perfor med using the [employer] tPSA method. Measured values of a patient sample can vary depending on the testing procedure used. PSA values determined on patient samples by different testing procedures cannot be used interchangeably. If there is a change in PSA assays while monitoring therapy, sequential testing should be performed to confirm baseline values. Start: 10-03-2024 Blood pressure withi n normal parameters - no follow-up required Michelle Stanton MD Work Phone: Start: 10-03-2024 BMI outside of jeison l parameters - no follow-up plan/reason not given Michelle Stanton MD Work Phone: Start: 10-03-2024 Current tobacco non- user cad cap copd pv dm Michelle Stanton MD Work Phone: Start: 10-03-2024 Documentation of cur rent medications Michelle Stanton MD Work Phone: Start: 10-03-2024 Pain assessment docu mented as negative - follow-up not required Michelle Stanton MD Work Phone: Start: 06-30-2024 Assay of prostate sp ecific antigen total Dr. Scotty Hendrix MD Work Phone: Comment on above: This test was perfor med using the [employer] tPSA method. Measured values of a patient sample can vary depending on the testing procedure used. PSA values determined on patient samples by different testing procedures cannot be used interchangeably. If there is a change in PSA assays while monitoring therapy, sequential testing should be performed to confirm baseline values. Start: 05-13-2024 MRI of pelvis with contrast Dr. Scotty Hendrix MD Work Phone: Plan of Treatment Date Care Activity Detail Author Start: 02-08-2025 [facility] Start: 12-21-2024 Complete blood count [facility] Start: 12-21-2024 Folic acid measurement, RBC [facility] Start: 12-21-2024 Thiamine measurement [facility] Start: 12-21-2024 Thyroid stimulating hormone measurement [facility] Start: 12-21-2024 Vitamin B12 measurement [facility] Start: 12-21-2024 Vitamin B6 measurement [facility] Start: 12-21-2024 Vitamin D, 1,25-dihy droxy measurement [facility] Start: 12-21-2024 [facility] Start: 10-03-2024 Patient encounter procedure [employer] Work Phone: Start: 10-03-2024 Radex foot complete minimum 3 views [employer] Work Phone: Comprehensive metabo lic 2000 panel - Serum or Plasma [facility] Magnesium measurement [facility] MR Brain WO and W contrast IV [facility] MR Cervical spine [facility] MR Lumbar spine [facility] Immunizations Immunization Date Immunization Notes Care Provider Fa cility 12-06-2021 Covid Pfizer Bivalen t Booster [facility] 12-06-2021 Influenza, high dose seasonal Dr. Scotty Hendrix MD Work Phone: [facility] 12-06-2021 influenza, high dose seasonal, preservative-free [facility] 01-03-2021 Covid (Moderna) [facility] 06-06-2020 Covid (Moderna) [facility] 05-09-2020 Covid (Moderna) [facility] 02-14-2020 zoster vaccine recombinant [facility] 11-18-2019 tetanus toxoid, redu abraham diphtheria toxoid, and acellular pertussis vaccine, adsorbed [facility] 11-18-2019 zoster vaccine recombinant [facility] 11-25-2015 zoster vaccine, live [facility] Payers Date Payer Category Payer Self-pay [id number] 2020 Medicare [id number] 2014 Unknown [id number] Unknown [id number] 2.16.8 [id number] Unknown [id number] 2.16.8 [id number] Unknown [id number] 2.16.8 [id number] Unknown [id number] 2.16.8 [id number] Unknown [id number] 2.16.8 [id number] Unknown [id number] 2.16.8 [id number] Unknown [id number] 2.16.8 [id number] Unknown [id number] 2.16.8 [id number] Unknown [id number] 2.16.8 [id number] Social History Date Type Detail Facility Start: 03-28-2020 End: 03-28-2020 Tobacco smoking status NHIS Unknown if ever smoked [facility] Start: 1955 Sex Assigned At Male [facility] Start: 12-08-2023 Tobacco smoking stat us NHIS Never smoked tobacco (finding) [facility] Start: 05-25-2024 End: 06-15-2024 Sex Male (finding) [facility] Start: 10-03-2024 social history revie wed E&M Done [facility] Progress note 12-21-2024 Note Date & Type Note Facility 12-21-2024 Progress note [facility] Evaluation note Note Date & Type Note Facility Evaluation note No assessment information availa ble [facility] Work Phone: Evaluation note Note Date & Type Note Facility Evaluation note Diagnosis Onset Date Resolution Abnormal gait acute December 8:48am Degenerative joint disease (DJD) of lumbar spine acute December 21 8:48am Degenerative joint disease of cervical spine acute December 21 8:48am Disequilibrium acute December 212024 8:48am Hearing loss acute December 8:48am [facility] Work Phone: Hospital Discharge instructions Note Date & Type Note Facility Hospital Discharge instructions Ambulatory OrdersPhysical Therapy Referral Location: None Selected [facility] Work Phone: Progress note Note Date & Type Note Facility Progress note Note Date/Time December 21, 2024 10:11am [facility] [address] [place] [address], [address] [place] [address] OFFICE VISIT Date of Service: 12/21/24 MR#: [id number] Acct: [id number] Name: ARIAS WAGNER Rep # : [id number] : 1955 Provider: Dr. Shashi Joyce MD Age/Sex: 69/M Location: [facility] [place]. Status: Signed with Addenda ADDENDUM by Dr. Juan Joyce MD on 12/21/24 at 1824 Addendum Addendum (12/21/2024): Standing blood pressure was 142/93 on 12/21/2024. 12/21/24 1824 <Electronically signed by Juan ashraf MD> Date _ Juan Joyce MD cc: Dr. Michelle Stanton MD; Dr. Scotty Hendrix MD ~* Signed HPI HPI Chief Complaint: Establish Care Details: History: The patient is a 69-year-old right-handed male with a past medical history ofprostate cancer (this is being monitored and has been untreated) who presents for evaluation of gait imbalance. He began to have gait imbalance around 2016. At that time, he had right hip pain and on evaluation was found to have degenerative joint disease of the right hip. He underwent a right total hip replacement in 2016 which was of benefit for his pain though his gait imbalance persisted. He has had low back pain and right lower extremity radicular pain and has seen a paint brush maker, Dr. Goldstein. Around 2022, he received lumbar injections and he is also currently being treated with gabapentin and he is no longer experiencing significant low back pain or lower extremity radicular pain. He denies having neck pain. He denies having numbness. He reports having generalized weakness. He denies having recent headaches or vision change. He strained his right foot when he was in college and on assessment in subsequent years was thought to possibly have had a right foot fracture at the time of his foot strain. He subsequently underwent right foot/ankle surgery for removal of bone in 1989. He continues to experience intermittent sharp right foot pain that occurs at times when he ambulates and asa result of this, he ambulates with a guarding of his right foot by internally turning the right foot when he takes steps. He is currently seeing an orthopedic surgeon, Dr. Stanton, regarding his right foot pain and hammertoes of the left foot and surgery is being considered however due to his gait imbalance a referral was made to this office. He had physical therapy earlier in 2024 andthis was of benefit for his gait. Lumbar x-rays from 2015 reveal multilevel degenerative joint disease. Cervical spine x-rays from 2009 reveal mild degenerative joint disease. He has had over 20 falls since 2022. He states that the majority of his falls are triggered by acute right ankle pain that causes his right leg to buckle. He occasionally experiences disequilibrium and lightheadedness however these are not generally temporally related with his falls. He has chronic bilateral hearing loss and is to obtain hearing aids. He has tinnitus. Past Medical History: As above. There is no history of hypertension, diabetes mellitus, heart disease, lung disease, stroke, seizure, thyroid disease, renal disease, sleep apnea, or hyperlipidemia. Social History: There is no history of smoking tobacco. There is no history of alcohol abuseor illicit drug use. Family History: There is no family history of cerebral aneurysm, seizure, stroke, or neuropathy. Review of Systems: As above. The patient has not had any recent fever, rash, weight change, chest pain, shortness of breath, gastrointestinal problems or urinary problems. He has insomnia. He denies having depression or anxiety. Physical Exam: General: Well-developed, well-nourished male in no acute distress. Neuro: The patient is awake and alert and responds appropriately; speech is fluent; language function is within normal limits Cranial nerves: PERRL, 3mm bilaterally; EOMI; visual swartz are full; visual acuity is 20/30 on the left and 20/25 on the right; face is symmetrical; tongue is midline; there are no deficits to pinprick Cerebellar system: No nystagmus; no dysmetria in the upper extremities or lower extremities Deep tendon reflexes: +2 at the right brachioradialis, right biceps, and tricepsbilaterally, +1 at the left brachioradialis, absent at the left biceps, knees, and ankles; plantar responses are upward on the right and equivocal on the left Motor: Strength 5/5 in the biceps bilaterally, triceps bilaterally, deltoid bilaterally, first dorsal interosseous muscles bilaterally, iliopsoas bilaterally, quadriceps bilaterally and foot dorsiflexors bilaterally, and 4/5 in the abductor pollicis brevis bilaterally; no drift Sensory: There are no deficits to soft touch or pinprick; decreased vibration isnoted in both feet Gait: Slow and mildly unsteady; he internally rotates his right foot when he ambulates; Romberg is negative; he has difficulty performing heel-to-toe walking HEENT: Normocephalic; atraumatic; tympanic membranes are clear Neck: No bruits Heart: Regular rhythm and rate Extremities: No cyanosis or edema; the right calf is smaller than the left; mildbilateral lower extremity pitting edema is noted; right posterior tibial pulse is +2; left dorsalis pedis pulse is +2; straight leg raise is negative bilaterally Supplemental Info Cervical spine x-rays (08/15/2009): FINDINGS: Normal appearing craniocervical junction and anterior atlantoaxial articulation. Normal odontoid process. There is slight straightening of the normal cervical lordosis. Normal alignment of the cervical vertebrae. There is mild narrowing of the C5-6 disc. The C7-T1 disc is not well visualized on the lateral view due to overlying shoulders. Anterior endplate osteophyte are present at C5-6. There is left greater than right facet arthrosis at the C3-4 through C6-7 levels. There appears to be severe narrowing of the left C3-4 foramen and moderate narrowing of the left C2-3 and C4-5 foramina. Moderate/severe narrowing of the right C3-4 through C6-7 foramina is present. Normal visualized soft tissue structures. IMPRESSION: Plain film findings of degenerative spondylosis at C5-6. Multilevel facet arthrosis, greatest on the left at C3-4 and C4-5. Multiple bilateral foramina are significantly narrowed. Right hip x-rays (12/19/2014): FINDINGS: There are osteoarthritic changes of the femoral head with marginal osteophyte formation. There is osteoarthritic spur formation of the acetabular rim. There is severe articular joint space narrowing. Normal visualized superior and inferior pubic rami and ischial tuberosities. IMPRESSION: Advanced degenerative osteoarthritis of the hip. Lumbar x-rays (07/30/2015): FINDINGS: Normal lumbar lordosis. There is a mild levoscoliosis of the lumbar spine. There is a normal alignment of the vertebrae. There is multilevel endplate spondylosis of the lumbar vertebrae. There is multi-level degenerative disc disease with multi-level disc space narrowing. The soft tissue structures are unremarkable. IMPRESSION: There is multi-level severe degenerative disc disease with multi-level disc space narrowing. IMPRESSION: There is multi-level severe degenerative disc disease with multi-level disc space narrowing. Cardiac echo (04/06/2020): Normal LV size. The estimated ejection fraction is 50 %. Moderate concentric left ventricular hypertrophy. Stage 1 diastolic dysfunction. Patent foramen ovale. Contrast injection was performed. EKG (02/18/2022): Sinus rhythm with 1st degree A-V block Left anterior fascicular block Abnormal ECG Pelvic MRI (05/13/2024): FINDINGS: Note dynamic postcontrast imaging was not performed; an alternative PI-RADS algorithm was therefore utilized. Exam additionally limited by artifact related to right hip arthroplasty, the portions of the rightpelvis partially obscured on some sequences. Variable overall mild motion limitation. Prostate size: 5.4 x 4.1 x 3.9 cm, estimated volume 45 mL (PSA density 0.11 based on provided PSA 4.96). Transition zone: PI-RADS 2 findings. Additional lesions as below: *Lesion 1: Left anterior transition zone apex probably involving the overlying left anterior peripheral zone apex, 2.2 cm (series 9, image 19). *T2 score: 5. *DWI score: 3. *DCE: N/a. *Overall PI-RADS: Borderline; felt the best considered PI-RADS 4. *Extracapsular extension: No gross extracapsular extension, however note that there is capsular abutment greater than 1 cm which can be associated with microscopic extracapsular extension. Peripheral Zone: As above, otherwise no clear high-risk lesion identified. Background changes of likely prostatitis. Probable partially extruded transition zone nodule in the left posterior peripheral zone midgland to apex. Neurovascular bundles: Unremarkable. Seminal vesicles: Unremarkable. Bladder: Underdistended and suboptimally evaluated. Mild wall thickening and trabeculation suggesting chronic bladder outlet obstruction. Lymph nodes: Distal external iliac nodes up to 9 mm short axis on the left and 7mm short axis on the right. Bones: Artifact related to right hip arthroplasty as above. No frankly destructive or suspicious bony lesion identified allowing for limitations. Other: Trace nonspecific pelvic free fluid. Small fat containing bilateral inguinal hernias. Trace left hip joint effusion. Suspect trace hydroceles, partially imaged. IMPRESSION: 1. 2.2 cm lesion in the left anterior transition zone apex probably involving the overlying left anterior peripheral zone is borderline but felt the best considered PI-RADS 4. 2. No gross extracapsular extension, however note that there is capsular abutment greater than 1 cm which can be associated with microscopic extracapsular extension. 3. Mild distal left external iliac lymphadenopathy by PI-RADS criteria, nonspecific in the absence of known prostatic malignancy and potentially reactive. If prostatic neoplasm is found to be present, this would at a minimum warrant close follow-up. Prominent but technically nonenlarged distal right external iliac node also present. 4. Trace nonspecific pelvic free fluid. 5. Additional description as above. CBC, lipid profile, TSH, CMP (06/30/2024): BUN/creatinine ratio 21.1 (high), triglycerides 98 (normal), cholesterol 218 (high), LDL 143 (normal), HDL 55 (normal), Right lower extremity EMG/nerve conduction studies (09/07/2024): Impression: Normal study. There is no electrophysiological evidence for a right L3-S1 radiculopathy/plexopathy, mononeuropathy, or a generalized large fiber peripheral polyneuropathy. Assessment and Plan Assessment and Plan (1) Abnormal gait: Status: Acute (2) Disequilibrium: Status: Acute (3) Hearing loss: Status: Acute (4) Degenerative joint disease (DJD) of lumbar spine: Status: Acute (5) Degenerative joint disease of cervical spine: Status: Acute Orders: Orders Brain W/WO Contrast Today H91.90 - Unspecified hearing loss, unspecified ear, R26.9 - Unspecified abnormalities of gait and mobility, R42 - Dizziness and giddiness Spine Lumbar (Routine) Today M47.816 - Spondylosis without myelopathy or radiculopathy, lumbar region, R26.9 - Unspecified abnormalities of gait and mobility Spine Cervical (Routine) Today M47.812 - Spondylosis without myelopathy or radiculopathy, cervical region, R26.9 - Unspecified abnormalities of gait and mobility Vitamin D 1,25-Dihydroxy Today R26.9 - Unspecified abnormalities of gait and mobility VITAMIN B6 Today R26.9 - Unspecified abnormalities of gait and mobility Vitamin B12 Today R26.9 - Unspecified abnormalities of gait and mobility Vitamin B1, Thiamine Today R26.9 - Unspecified abnormalities of gait and mobility Folates, RBC Today R26.9 - Unspecified abnormalities of gait and mobility Thyroid Stim Hormone (TSH) Today R26.9 - Unspecified abnormalities of gait and mobility, R53.1 - Weakness [place] Lambda Light Chains Today R26.9 - Unspecified abnormalities of gait and mobility Comprehensive Metabolic Profil Today R26.9 - Unspecified abnormalities of gait and mobility CBC-Complete Blood Cnt No Diff Today R26.9 - Unspecified abnormalities of gait and mobility Magnesium Today R26.9 - Unspecified abnormalities of gait and mobility NCS and/or EMG - Bilateral Lower Today R20.0 - Anesthesia of skin, R26.9 - Unspecified abnormalities of gait and mobility, Z87.39 - Personal history of other diseases of the musculoskeletal system and connective tissue Referrals Physical Therapy Referral R26.9 - Unspecified abnormalities of gait and mobility Plan Details Additional Comments: The patient presents with gait imbalance that has been present since 2016 andis likely multifactorial in etiology. He had a right total hip replacement in 2016 and has had right foot/ankle surgery (1989. His right hip replacement was of benefit for pain in this region. He continues to experience intermittent sharp right foot/ankle pain that has caused his right leg to buckle and has at times resulted in falls. He is seeing an orthopedic surgeon, Dr. Stanton, regarding his foot/ankle pain and hammertoes of the left foot and surgery is being considered however further assessment of his gait imbalance has been requested. He has multilevel degenerative joint disease of the cervical spine and lumbarspine. He previously had low back pain and right lower extremity radicular painhowever these resolved following lumbar injections in 2022 and initiation of gabapentin. Right lower extremity EMG/nerve conduction study performed earlier in 2024 was normal. He exhibits a right upward plantar response and an equivocal left plantar response. Despite the absence of pain in these regions, the possibility of central canal stenosis in the lumbar and/or cervical spine region are considerations and, if present, may be contributing to his gait imbalance. Assessment has not been made of his left lower extremity with EMG/nerve conduction study. He has experienced occasional disequilibrium and occasional lightheadedness though these do not appear to be symptoms that are primarily associated with hisperception of gait imbalance and occurrence of falls. He has chronic bilateral hearing loss and tinnitus. - He will be evaluated further with a lumbar MRI. - A cervical spine MRI will be ordered. - A head MRI will be ordered to assess his gait imbalance and disequilibrium (this may be due to a peripheral vestibulopathy). - A B12, thiamine, folate, CBC, CMP, magnesium, TSH, vitamin D, pyridoxine, and serum free light chains will be checked. - Physical therapy will be ordered. - A lumbar MRI will be ordered. - He did not wish to take any new prescription medication for his intermittent right foot pain. - EMG/nerve conduction studies of the lower extremities will be scheduled. If these are unrevealing then a skin biopsy to assess for small fiber neuropathythat may not be detectable on EMG/nerve conduction study will be considered. I will have him return for reassessment in 2-1/2 months. Thank you for this consultation. Intake Vital Signs 12/30/23 09:33 12/21/24 08:47 Height 6 ft 4 in 6 ft 4 in Weight: 267 lb BMI 32.5 BP 145/84 H Blood Pressure Location Lt brachial Position Sitting Respiration 16 Pulse 68 Pulse Source Monitor Temp 98.0 F Temp Source Temporal Pulse Oximetry (%) 98 Oxygen Delivery Method room air Intake Visit Reasons: GAIT ATAXIA Chief Complaint: Establish Care Administrative Program Specialist Required: No Accompanied by: Allergies No Known Allergies Allergy (Verified 12/21/24 08:51) Medications ?Medication ?Instructions ?Recorded ?Confirmed ?Type multivitamin 1 tab PO DAILY 03/27/2012/07 History naproxen sodium 220 mg tablet 220 mg PO BID PRN pain 0 03/27/20 12/21/24 History (Aleve) bee pollen 550 mg capsule mg PO QDAY 12/21/24 12/21/24 History gabapentin 300 mg capsule 300 mg PO TID 12/21/2412/21 History Have you fallen in the past year?: Yes [facility] Medical History (Updated 12/21/24 @ 14:[address] Juan Joyce MD) Obesity Vitamin D deficiency Hip arthrosis DDD (degenerative disc disease), cervical Polyarthritis Leg length discrepancy Carpal tunnel syndrome Surgical History History of carpal tunnel surgery of left wrist History of left knee surgery (1999) History of vascular surgery History of ankle surgery (1989) History of tonsillectomy History of right hip replacement Family History Father Thoracic aortic aneurysm CAD (coronary artery disease) CABG Heart disease chf Arthritis Mother Multiple myeloma Arthritis Grandfather CAD (coronary artery disease) Grandmother CAD (coronary artery disease) Social History Smoking Status: Never smoker alcohol intake: current substance use type: does not use additional social history: no marijuana, no edibles, no vaping, no asa for years, takes ibuprofen and aleve daily. Clinical Quality Measures Falls Risk Screening/Assistive Devices Have you fallen in the past year?: Yes Coding Level of Care Code Off vis,new,level 4 Diagnoses Abnormal gait R26.9 Disequilibrium R42 Hearing loss H91.90 Degenerative joint disease (DJD) of lumbar spine M47.816 Degenerative joint disease of cervical spine M47.812 12/21/24 1420 <Electronically signed by Juan ashraf MD> Date _ Juan Joyce MD Cosigner Signature: Date (if applicable) CC: Dr. Michelle Stanton MD; Dr. Scotty Hendrix MD ~ [facility] Work Phone: Reason for referral (narrative) Note Date & Type Note Facility Reason for referral (narrative) No reason for referral information available [facility] Work Phone: Summary Purpose Family History No Family History Records Found Relationship Condition Age at Onset Recorded Date/T fozia father Thoracic aortic aneurysm (TAA) Unknown Coronary artery disease Unknown Cardiac disease Unknown Arthritis Unknown mother Multiple myeloma Unknown grandfather Coronary artery disease Unknown grandmother Coronary artery disease Unknown Family Member Condition Father Mother Advance Directives No Advanced Directives Records Found No Information Available No Advanced Directives Records Found Chief Complaint and Reason for Visit Chief Complaint PRE OP Chief Complaint LUMBAR SPINAL STENOS IS / RX HERE Chief Complaint Admit Date SPINAL STENOSIS. RX HERE March 03, 2024 5:30pm ELEVATED PSA May 13, 2024 7:47 am Chief Complaint Admit Date GAIT ATAXIA December 21, 2024 8 :48am Reason for Visit Admit Date Abnormal gait December 21, 2024 8 :48am Degenerative joint disease (DJD) of lumb ar spine December 21, 2024 8:48am Degenerative joint disease of cervical s pine December 21, 2024 8:48am Disequilibrium December 21, 2024 8 :48am Hearing loss December 21, 2024 8 :48am Additional Source Comments (unrecognized sect ion and content) No Status Records FoundNo Status Records Found INFORMATION SOURCE (unrecogn ized section and content) DATE CREATED AUTHOR 03/13/2020 [facility] DATE CREATED AUTHOR AUTHOR'S ORGANIZ ATION 01/14/2025 [facility] Goals (unrecognized section and content) Goals may be documented in a n alternate sectionGoals may be documented in an alternate sectionGoals may be documented in an alternate sectionGoals may be documented in an alternate sectionGoals may be documented in an alternate sectionGoals may be documented in an alternate sectionGoals may be documented in an alternate section No Information AvailableGoals may be documented in an alternate sectionGoals may be documented in an alternate section Care Teams (unrecognized sec tion and content) Team Status: Active Member Role Status Dates Dr. Scotty Hendrix MD Family Provider Active Dr. Scotty Hendrix MD Primary Care Provider Active Team Status: Inactive Member Role Status Dates Dr. Scotty Hendrix MD Primary Care Provider, Attending P joe Active Team Status: Active Member Role Status Dates Dr. Scotty Hednrix MD Primary Care Provider Active Dr. Aadm Hayden DO Attending Provider, Referring P joe Active Team Status: Active Member Role Status Dates Dr. Scotty Hendrix MD Primary Care Provider Active Team Status: Inactive Member Role Status Dates Dr. Scotty Hendrix MD Primary Care Provider Active Start: March 03, 2024 End: March 03, 2024 Dr. Adam Goldstein MD Attending Provider Active Start: March 03, 2024 End: March 03, 2024 Dr. Adam Goldstein MD Referring Provider Active Start: March 03, 2024 End: March 03, 2024 Team Status: Inactive Member Role Status Dates Dr. Scotty Hendrix MD Primary Care Provider Active Start: May 13, 2024 End: May 13, 2024 Dr. Shiv Ray MD Attending Provider Active Start: May 13, 2024 End: May 13, 2024 Dr. Shiv Ray MD Referring Provider Active Start: May 13, 2024 End: May 13, 2024 Team Status: Inactive Member Role Status Dates Dr. Scotty Hendrix MD Primary Care Provider Active Start: June 09, 2024 End: June 09, 2024 Dr. Shiv Ray MD Attending Provider Active Start: June 09, 2024 End: June 09, 2024 Dr. Shiv Ray MD Referring Provider Active Start: June 09, 2024 End: June 09, 2024 Team Status: Active Member Role/Relationship Status Dates Dr. Scotty Hendrix MD Primary Care Provider Active Team Status: Inactive Member Role/Relationship Status Dates Dr. Scotty Hendrix MD Primary Care Provider Active Start: June 30, 2024 End: June 30, 2024 Dr. Scotty Hendrix MD Attending Provider Active St art: June 30, 2024 End: June 30, 2024 Dr. Scotty Hendrix MD Referring Provider Active St art: June 30, 2024 End: June 30, 2024 Team Status: Inactive Member Role/Relationship Status Dates Dr. Scotty Hendrix MD Primary Care Provider Active Start: October 10, 2024 End: October 10, 2024 Nithya Capulin Attending Provider Active Start : October 10, 2024 End: October 10, 2024 Nithya Capulin Referring Provider Active Start : October 10, 2024 End: October 10, 2024 Team Status: Active Member Role/Relationship Status Dates Dr. Scotty Hendrix MD Primary care physician Active Team Status: Inactive Member Role/Relationship Status Dates Dr. Scotty Hendrix MD Primary care physician Active Start: October 10, 2024 End: October 10, 2024 Nithya Capulin Attending physician Active Star t: October 10, 2024 End: October 10, 2024 Nithya Capulin Referring Provider Active Start : October 10, 2024 End: October 10, 2024 Team Status: Inactive Member Role/Relationship Status Dates Dr. Scotty Hendrix MD Primary care physician Active Start: December 21, 2024 End: December 21, 2024 Dr. Scotty Hendrix MD Referring Provider Active St art: December 21, 2024 End: December 21, 2024 Dr. Juan Joyce MD Attending physician Active Start: December 21, 2024 End: December 21, 2024 REASON FOR VISIT (unrecogniz ed section and content) acquired claw toe of left malik llux , Follow-up by complaint FOR RECORDS PERTAINING TO PATIENTS WHO ARE [...] BE BASED ON THE PRIMARY CLINICAL RECORDS. [facility]. provides no warranty or guarantee of the accuracy or completeness of information in this document.
--- NOTE | 2025-02-08 13:35 | NEURO ---
NCS and/or EMG Patient Report Ordering Doctor: Juan Joyce DATE OF SERVICE: 02/08/25 Bill presents with pain in his feet and heaviness. He reports having difficulty with his gait. Electrodiagnostic findings: Right peroneal motor nerve at the tibialis anterior demonstrates normal distal latency, amplitude and conduction velocity. Left tibial motor nerve measured tibialis anterior demonstrates normal distal latency, amplitude and conduction velocity. Right tibial motor response is within normal limits. Decreased left tibial motor amplitude is noted. Normal sural response bilaterally. Normal right superficial peroneal response. Absent left superficial peroneal response. Needle EMG testing was performed in the lower limbs. All muscles tested showed no evidence of denervation with normal motor unit action potentials. Electrodiagnostic impression: This is an abnormal study. 1. 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 There is evidence of diminished motor amplitude. 2. Electrodiagnostic findings suggestive of a left superficial peroneal neuropathy. 3. No abnormality was evidenced in the right lower limb. 4. No electrodiagnostic evidence for lumbosacral radiculopathy Multi Select Codes Neurology Neurology Interp Codes: 94518-03 Musc test done w/n test comp (interp) (2) and 00555-29 Nrv cndj test 9-10 studies (interp)
== END | disposition home or self-care (01) ==
LOC: PSN 06:48
PROVIDERS: PCP Family Medicine; Referring Provider Psychiatry & Neurology Neurology; Visit Provider Psychiatry & Neurology Neurology
DX: R20.0 Anesthesia of skin (principal); R26.9 Unspecified abnormalities of gait and mobility; Z87.39 Personal history of other diseases of the musculoskeletal system and connective tissue
CPT/HCPCS: 95886; 95912